=== PATIENT | female | born 1950 | race Caucasian/White ===

== ENCOUNTER 2024-09-18 19:55 | Emergency (ER) | payer MEDICARE ==
--- NOTE | 2024-09-18 20:29 | ED ---
SOB HPI - General Chief Complaint: Shortness of Breath Stated Complaint: SOB back pain Time Seen by Provider: 09/18/24 20:29 Source: patient, family, RN notes reviewed Mode of arrival: wheelchair Limitations: no limitations - History of Present Illness Initial Comments: 74-year-old female with a past medical history significant of hyperlipidemia presenting to the ER for evaluation of shortness of breath. She states for the past couple of weeks she has been having progressively worsening shortness of breath. She states 2 weeks ago she was seen at urgent care as she believes she had a sinus infection. Patient reports 1 week ago she traveled to [place] via airplane with continued shortness of breath. She states this continued to progressively worsening while in [place] which prompted ER visit today after landing around 5pm. Patient also is reporting a right-sided chest discomfort. She does report radiation into her right upper quadrant/epigastric region. She also admits to mild lightheadedness and exertional dyspnea. She states she can only take 4-5 steps without feeling extremely lightheaded and short of breath. Patient admits to conversational dyspnea. She does not typically wear oxygen at home. No history of COPD. Patient is an intermittent smoker. No history of PE/DVT, blood thinner use, OH or stent placement. She denies any nausea, vomiting, urinary complaints, constipation/diarrhea or peripheral edema. Patient has not taken anything for symptoms at this time. No other complaints. - Related Data Previous Rx's Medication Instructions Recorded Ketorolac [Toradol] 10 mg PO Q8HR #30 tab 09/18/24 Allergies Allergy/AdvReac Type Severity Reaction Status Date / Time codeine AdvReac Rash/Hives Verified 09/18/24 20:03 Review of Systems ROS Statement: Those systems with pertinent positive or pertinent negative responses have been documented in the HPI. ROS Other: All systems not noted in ROS Statement are negative. Past Medical History History of Any Multi-Drug Resistant Organisms: None Reported Past Surgical History: Joint Replacement Additional Past Surgical History / Comment(s): cataract bilateral eyes. left hip replacement. Past Psychological History: No Psychological Hx Reported Smoking Status: Former smoker Past Alcohol Use History: Rare Past Drug Use History: None Reported General Exam Limitations: no limitations General appearance: alert, in no apparent distress, other (Conversational dys pnea) Respiratory exam: Present: normal lung sounds bilaterally, chest wall tenderness (Right anterior ribs no overlying skin changes.). Absent: respiratory distress, wheezes, rales, rhonchi, stridor Cardiovascular Exam: Present: regular rate, normal rhythm, normal heart sounds. Absent: systolic murmur, diastolic murmur, rubs, gallop, clicks GI/Abdominal exam: Present: soft, tenderness (Right upper quadrant), normal bow el sounds Extremities exam: Present: normal inspection, full ROM, normal capillary refill. Absent: tenderness, pedal edema, joint swelling, calf tenderness Neurological exam: Present: alert, oriented X3, CN II-XII intact Skin exam: Present: warm, dry, intact, normal color. Absent: rash Course Vital Signs 09/18/24 09/18/24 09/18/24 19:57 21:03 22:21 Temperature 98.4 F 98.7 F Pulse Rate 85 75 75 Respiratory 18 17 20 Rate Blood Pressure 153/80 173/91 177/89 O2 Sat by Pulse 94 L 95 93 L Oximetry 09/19/24 00:16 Temperature Pulse Rate 80 Respiratory 18 Rate Blood Pressure 161/86 O2 Sat by Pulse 95 Oximetry - Reevaluation(s) Reevaluation #1: 09/18/24 23:08 Patient reevaluated. Patient reporting improvement of pain. She also states it is easier for her to breathe. No signs of acute distress. Medical Decision Making - Medical Decision Making Was pt. sent in by a medical professional or institution (, PA, E[employer] SALES REPRESENTATIVE, urgent care, hospital, or intermediate...) When possible be specific @ -No Did you speak to anyone other than the patient for history (EMS, parent, family, police, friend...)? What history was obtained from this source @ -Patient's , at bedside, aiding in HPI and past medical history. Did you review nursing and triage notes (agree or disagree)? Why? @ -I reviewed and agree with nursing and triage notes Were old charts reviewed (outside hosp., previous admission, EMS record, old EKG, old radiological studies, urgent care reports/EKG's, intermediate records)? Report findings @ -No old charts were reviewed Differential Diagnosis (chest pain, altered mental status, abdominal pain women, abdominal pain men, vaginal bleeding, weakness, fever, dyspnea, syncope, headache, dizziness, GI bleed, back pain, seizure, CVA, palpatations, mental health, musculoskeletal)? @ -Differential Dyspnea: Coronary syndrome, arrhythmia, tamponade, asthma, COPD, pulmonary embolism, pneumonia, pneumothorax, pulmonary effusion, anaphylaxis, diabetic ketoacidosis, flailed chest, pulmonary contusion, diaphragmatic rupture, anemia, neuromuscular, this is not meant to be an all- inclusive list. EKG interpreted by me (3pts min.). @ -As above X-rays interpreted by me (1pt min.). @ -CXR showed a patchy left upper lobe infiltrate concerning for pneumonia. CT interpreted by me (1pt min.). @ -CTA chest showing no evidence of pulmonary embolism. Consolidative change noted to the left upper lobe associated with extensive mediastinal lymphadenopathy possibly neoplasm. CT abdomen pelvis showing extensive metas tatic disease to the liver. Nonobstructing left renal calculi. No bowel obstruction] U/S interpreted by me (1pt. min.). @ -Gallbladder ultrasound showing cholelithiasis without acute evidence of ac shona cholecystitis. Common bile duct 0.5 cm. Hepatomegaly and heterogeneous hepatic echotexture with indeterminate lesions measuring up to 2.7 cm. What testing was considered but not performed or refused? (CT, X-rays, U/S, labs)? Why? @ -None What meds were considered but not given or refused? Why? @ -None Did you discuss the management of the patient with other professionals (professionals i.e. , PA, E[employer] SALES REPRESENTATIVE, lab, RT, psych nurse, rn social services, farm general manager, teacher, senior officer, case aide)? Give summary @ -No Was smoking cessation discussed for >3mins.? @ -No Was critical care preformed (if so, how long)? @ -No Were there social determinants of health that impacted care today? How? (Ho melessness, low income, unemployed, alcoholism, drug addiction, transportation, low edu. Level, literacy, decrease access to med. care, detention, rehab)? @ -Patient does not have primary care physician established. Was there de-escalation of care discussed even if they declined (Discuss DNR or withdrawal of care, Hospice)? DNR status @ -No What co-morbidities impacted this encounter? (DM, HTN, Smoking, COPD, CAD, Cancer, CVA, ARF, Chemo, Hep., AIDS, mental health diagnosis, sleep apnea, morbid obesity)? @ -Hyperlipidemia Was patient admitted / discharged? Hospital course, mention meds given and route, prescriptions, significant lab abnormalities, going to OR and other pertinent info. @ -Discharge. 74-year-old female presented to the ER for evaluation of shortness of breath. Vitals within acceptable limits. Patient has conversational dyspnea on exam and exquisite right upper quadrant abdominal tenderness. Laboratory studies showing a WBC of 10. Transaminitis with a total bilirubin of 2.0, AST 190, ALT 114, alk phos 404. Lipase 526, amylase 70. . Viral swabs negative. Troponin 0.034 with a BNP 764. D-dimer elevated 11.16 for which CTA chest was ordered and negative for acute evidence of pulmonary embolism. CTA chest also showing consolidative changes the left upper lobe associated with extensive mediastinal lymphadenopathy raising concern of neoplasm. Given transaminitis, gallbladder ultrasound ordered showing cholelithiasis and multiple heterogeneous hepatic echotexture lesions. Common bile duct 0.[address] abdomen pelvis completed at that time showing worrisome findings of metastatic disease to the liver. Patient given symptomatic treatment in the ER with IV fluids and Toradol, with improvement. Upon reevaluation, patient resting comfortably in exam room reporting improvement of pain and shortness of breath. Laboratory and imaging results discussed with patient including concern of possible malignancy, all questions answered. Admission was offered to patient for possible biopsy of liver lesions, patient refused and stated she would like to go home. Patient provided with Toradol prescription and PCP recommendations as she does not currently have one. I advised her to follow-up closely with PCP for further evaluation and treatment. Patient is stable for discharge at this time. Strict return parameters discussed. Patient discharged in stable condition with follow-up to PCP. Patient verbally expressed understanding and agreement with care plan. Case discussed with ED attending, Dr. Ramos. Undiagnosed new problem with uncertain prognosis? @ -No Drug Therapy requiring intensive monitoring for toxicity (Heparin, Nitro, Insulin, Cardizem)? @ -No Were any procedures done? @ -No Diagnosis/symptom? @ -Transaminitis/abnormal CT Acute, or Chronic, or Acute on Chronic? @ -Acute Uncomplicated (without systemic symptoms) or Complicated (systemic symptoms)? @ -Complicated Side effects of treatment? @ -No Exacerbation, Progression, or Severe Exacerbation? @ -No Poses a threat to life or bodily function? How? (Chest pain, USA, OH, pneumonia, PE, COPD, DKA, ARF, appy, cholecystitis, CVA, Diverticulitis, Homicidal, Suicidal, threat to staff... and all critical care pts) @ -Yes cannot rule out malignancy - Lab Data Result diagrams: 09/18/24 20:23 09/18/24 20:23 Lab Results 09/18/24 09/18/24 09/18/24 Range/Units 20:23 20:23 20:23 WBC 10.0 (3.8-10.6) k/uL RBC 4.07 (3.80-5.40) m/uL Hgb 12.8 (11.4-16.0) gm/dL Hct 39.5 (34.0-46.0) % MCV 97.2 (80.0-100.0) fL MCH 31.4 (25.0-35.0) pg MCHC 32.3 (31.0-37.0) g/dL RDW 13.0 (11.5-15.5) % Plt Count 106 L (150-450) k/uL MPV 8.9 Neutrophils % 75 % Lymphocytes % 14 % Monocytes % 7 % Eosinophils % 1 % Basophils % 1 % Neutrophils # 7.5 (1.3-7.7) k/uL Lymphocytes # 1.4 (1.0-4.8) k/uL Monocytes # 0.7 (0-1.0) k/uL Eosinophils # 0.1 (0-0.7) k/uL Basophils # 0.1 (0-0.2) k/uL PT 10.6 (10.0-12.5) sec INR 1.0 (<1.2) APTT 24.6 (22.0-30.0) sec D-Dimer 11.16 H (<0.60) mg/L FEU Sodium 133 L (137-145) mmol/L Potassium 4.4 (3.5-5.1) mmol/L Chloride 98 (98-107) mmol/L Carbon Dioxide 28 (22-30) mmol/L Anion Gap 7 mmol/L BUN 10 (7-17) mg/dL Creatinine 0.45 L (0.52-1.04) mg/dL Est GFR (CKD-EPI)AfAm >90 (>60 ml/min/1.73 sqM) Est GFR (CKD-EPI)NonAf >90 (>60 ml/min/1.73 sqM) Glucose 130 H (74-99) mg/dL Plasma Lactic Acid Florin (0.7-2.0) mmol/L Calcium 9.5 (8.4-10.2) mg/dL Magnesium 2.0 (1.6-2.3) mg/dL Total Bilirubin 2.0 H (0.2-1.3) mg/dL AST 190 H (14-36) U/L ALT 114 H (4-34) U/L Alkaline Phosphatase 404 H (38-126) U/L Troponin I (0.000-0.034) ng/mL NT-Pro-B Natriuret Pep 764 pg/mL Total Protein 7.6 (6.3-8.2) g/dL Albumin 4.1 (3.5-5.0) g/dL Amylase 70 (30-110) U/L Lipase 526 H (23-300) U/L Influenza Type A (PCR) (Not Detectd) Influenza Type B (PCR) (Not Detectd) RSV (PCR) (Not Detectd) SARS-CoV-2 (PCR) (Not Detectd) 09/18/24 09/18/24 09/18/24 Range/Units 20:23 20:23 20:54 WBC (3.8-10.6) k/uL RBC (3.80-5.40) m/uL Hgb (11.4-16.0) gm/dL Hct (34.0-46.0) % MCV (80.0-100.0) fL MCH (25.0-35.0) pg MCHC (31.0-37.0) g/dL RDW (11.5-15.5) % Plt Count (150-450) k/uL MPV Neutrophils % % Lymphocytes % % Monocytes % % Eosinophils % % Basophils % % Neutrophils # (1.3-7.7) k/uL Lymphocytes # (1.0-4.8) k/uL Monocytes # (0-1.0) k/uL Eosinophils # (0-0.7) k/uL Basophils # (0-0.2) k/uL PT (10.0-12.5) sec INR (<1.2) APTT (22.0-30.0) sec D-Dimer (<0.60) mg/L FEU Sodium (137-145) mmol/L Potassium (3.5-5.1) mmol/L Chloride (98-107) mmol/L Carbon Dioxide (22-30) mmol/L Anion Gap mmol/L BUN (7-17) mg/dL Creatinine (0.52-1.04) mg/dL Est GFR (CKD-EPI)AfAm (>60 ml/min/1.73 sqM) Est GFR (CKD-EPI)NonAf (>60 ml/min/1.73 sqM) Glucose (74-99) mg/dL Plasma Lactic Acid Florin 1.7 (0.7-2.0) mmol/L Calcium (8.4-10.2) mg/dL Magnesium (1.6-2.3) mg/dL Total Bilirubin (0.2-1.3) mg/dL AST (14-36) U/L ALT (4-34) U/L Alkaline Phosphatase (38-126) U/L Troponin I 0.034 (0.000-0.034) ng/mL NT-Pro-B Natriuret Pep pg/mL Total Protein (6.3-8.2) g/dL Albumin (3.5-5.0) g/dL Amylase (30-110) U/L Lipase (23-300) U/L Influenza Type A (PCR) Not Detected (Not Detectd) Influenza Type B (PCR) Not Detected (Not Detectd) RSV (PCR) Not Detected (Not Detectd) SARS-CoV-2 (PCR) Not Detected (Not Detectd) - EKG Data -: EKG Interpreted by Me EKG Comments: EKG taken at 20: 14 showing a sinus rhythm with frequent PACs. No ST segment elevations or depressions. No T wave inversions. Ventricular rate 81, MT interval 108, QRS duration 96, QT/QTc 360/401. - Radiology Data Radiology results: report reviewed, image reviewed Disposition Clinical Impression: Transaminitis, Abnormal CT scan Disposition: HOME SELF-CARE Condition: Stable Additional Instructions: Follow-up closely with PCP A list has been provided for you. Take Toradol as prescribed. Return to the ER for any new or worsening concerns. Prescriptions: Ketorolac [Toradol] 10 mg PO Q8HR #30 tab Is patient prescribed a controlled substance at d/c from ED?: No Referrals: None,Stated [Primary Care Provider] - 1-2 days Forms: Area PCPs Time of Disposition: 23:55
--- NOTE | 2024-09-18 20:45 | XR ---
EXAMINATION TYPE: XR chest 2V DATE OF EXAM: 09/18/2024 8:41 PM COMPARISON: None. CLINICAL INDICATION: Female, 74 years old with history of difficulty breathing; [facility] TECHNIQUE: XR chest 2V Frontal and lateral views of the chest. FINDINGS: Lungs/Pleura: Patchy infiltrative opacities in the left upper lung. No sizable pleural effusion. No p neumothorax. Pulmonary vascularity: Unremarkable. Heart/mediastinum: Cardiomediastinal silhouette is unremarkable. Musculoskeletal: No acute osseous pathology. Other findings: None IMPRESSION: Patchy left upper lobe infiltrative opacities suspicious for pneumonia. Consider outpatient follow-up imaging to document resolution after treatment course. [facility], , 09/18/2024 8:43 PM
[2024-09-18 20:59] LABS: Basophils # (A) 0.1 k/uL (0-0.2); Basophils % (A) 1 %; Eosinophils # (A) 0.1 k/uL (0-0.7); Eosinophils % (A) 1 %; HCT 39.5 % (34.0-46.0); HGB 12.8 gm/dL (11.4-16.0); Lymphocytes # (A) 1.4 k/uL (1.0-4.8); Lymphocytes % (A) 14 %; MCH 31.4 pg (25.0-35.0); MCHC 32.3 g/dL (31.0-37.0); MCV 97.2 fL (80.0-100.0); Mean Platelet Volume 8.9; Monocytes # (A) 0.7 k/uL (0-1.0); Monocytes % (A) 7 %; Neutrophils # (A) 7.5 k/uL (1.3-7.7); Neutrophils % (A) 75 %; Platelet Count 106 k/uL (150-450); RBC 4.07 m/uL (3.80-5.40)
[2024-09-18 21:09] LABS: ALT 114 U/L (4-34); AST 190 U/L (14-36); African American GFR (CKD) >90 (>60 ml/min/1.73 sqM); Albumin 4.1 g/dL (3.5-5.0); Alkaline Phosphatase 404 U/L (38-126); Amylase 70 U/L (30-110); Anion Gap 7 mmol/L; Blood Urea Nitrogen 10 mg/dL (7-17); Calcium 9.5 mg/dL (8.4-10.2); Carbon Dioxide 28 mmol/L (22-30); Chloride 98 mmol/L (98-107); Glucose 130 mg/dL (74-99); Lipase 526 U/L (23-300); Non-African American GFR(CKD) >90 (>60 ml/min/1.73 sqM); Potassium 4.4 mmol/L (3.5-5.1); Sodium 133 mmol/L (137-145); Total Protein 7.6 g/dL (6.3-8.2)
[2024-09-18 21:14] LABS: Partial Thromboplastin Time 24.6 sec (22.0-30.0); Prothrombin Time 10.6 sec (10.0-12.5)
[2024-09-18 21:16] LABS: NT-Pro-B-Type Natriuretic Pept 764 pg/mL
[2024-09-18 21:52] LABS: Influenza A Not Detected (Not Detectd); Influenza B Not Detected (Not Detectd); RSV Not Detected (Not Detectd)
--- NOTE | 2024-09-18 22:00 | US ---
EXAMINATION TYPE: US gallbladder DATE OF EXAM: 09/18/2024 COMPARISON: NONE CLINICAL INDICATION: Female, 74 years old with history of transamainitis/RUQ abd pain; Pain TECHNIQUE: Grayscale and color Doppler imaging of the right upper quadrant was performed. FINDINGS: EXAM MEASUREMENTS: Liver Length: 23.6 cm Gallbladder Wall: 0.2 cm CBD: 0.5 cm Right Kidney: 10.9 x 4.6 x 4.0 cm Pancreas: wnl as visualized Liver: Enlarged in size. Heterogenous. Multiple nodules seen throughout liver with largest seen in right = 2.7 cm. Gallbladder: Mobile echogenic foci Evidence for sonographic Verma's sign: neg CBD: limited visualization Right Kidney: No hydronephrosis or masses seen IMPRESSION: 1. Cholelithiasis without definite sonographic evidence of acute cholecystitis. 2. Hepatomegaly and heterogeneous hepatic echotexture with indeterminate lesions measuring up to 2.[address] abdomen/pelvis with IV contrast for further evaluation. [facility], , 09/18/2024 9:58 PM
[2024-09-18 22:24] VITALS: TEMP 98.7
[2024-09-18] MEDS: SODIUM CHLORIDE 0.9% 500 ML 500 ML IV ONE (22:27)
[2024-09-18] MEDS: KETOROLAC 15 MG/ML 1 ML VIAL IVP STA (22:27)
--- NOTE | 2024-09-18 23:13 | CT ---
EXAM: CT Angiography Chest With Intravenous Contrast CLINICAL HISTORY: ITS.REASON CT Reason: elevated dimer/sob TECHNIQUE: Axial computed tomographic angiography images of the chest with intravenous contrast. CTDI is 7.1 mGy and DLP is 270.4 mGy-cm. This CT exam was performed using one or more of the following dose reduction techniques: automated exposure control, adjustment of the mA and/or kV according to patient size, and/or use of iterative reconstruction technique. MIP reconstructed images were created and reviewed. COMPARISON: Chest x-ray of 09/18/2024. FINDINGS: Pulmonary arteries: Peripheral branches the pulmonary arteries are unremarkable. Aorta: Atherosclerotic disease of the thoracic aorta. Atherosclerotic disease and ASCVD. No thoracic aortic aneurysm. Lungs: Consolidative changes noted at the left upper lobe. There is COPD. Minimal scarring and subsegmental atelectasis noted at the lung bases. Pleural space: Unremarkable. No significant effusion. No pneumothorax. Heart: Heart is normal in size. No cardiomegaly. No significant pericardial effusion. No evidence of RV dysfunction. Mediastinum: There is extensive mediastinal lymphadenopathy. Thyroid: The visualized thyroid gland is unremarkable. Bones/joints: No acute fracture. No dislocation. Soft tissues: Unremarkable. Lymph nodes: See above. Liver: Fatty liver. Other findings: Severe degenerative disc disease of the thoracic spine. IMPRESSION: 1. There is consolidative change at the left upper lobe with associated extensive mediastinal lymphadenopathy raising concern for neoplasm. PET imaging is highly advised for further assessment. Further workup is advised. 2. Central pulmonary arteries are unremarkable. 3. Peripheral branches the pulmonary arteries are limited but grossly unremarkable.
--- NOTE | 2024-09-18 23:17 | CT ---
EXAM: CT Abdomen and Pelvis With Intravenous Contrast CLINICAL HISTORY: ITS.REASON CT Reason: RUQ abd pain/transaminitis TECHNIQUE: Axial computed tomography images of the abdomen and pelvis with intravenous contrast. CTDI is 12 mGy and DLP is 1080.7 mGy-cm. This CT exam was performed using one or more of the following dose reduction techniques: automated exposure control, adjustment of the mA and/or kV according to patient size, and/or use of iterative reconstruction technique. COMPARISON: No previous studies. FINDINGS: Lung bases: Minimal scarring and subsegmental atelectasis noted at the lung bases. Heart: Heart is top normal in size. Mediastinum: Mild distal esophagitis. ABDOMEN: Liver: There is extensive metastatic disease to the liver. Fatty liver. Gallbladder and bile ducts: Small gallstones are noted. No ductal dilation. Pancreas: See below. Spleen: Spleen enhances uniformly. Adrenals: The adrenal glands, the head, body, tail of the pancreas are unremarkable. Kidneys and ureters: Both kidneys are shown to excrete contrast bilaterally. Nonspecific stranding about the perinephric spaces. A 0.7 cm nonobstructing calculus of the lower pole region of the left kidney is noted. Stomach and bowel: Small quantity of ingested material in the stomach. Moderate quantity of stool throughout the colon. No obstruction. No mucosal thickening. PELVIS: Appendix: No findings to suggest acute appendicitis. Bladder: The bladder is underdistended. Reproductive: Fibroid uterus. ABDOMEN and PELVIS: Intraperitoneal space: Unremarkable. No free air. No significant fluid collection. Bones/joints: Total left hip prosthesis is noted in place and are normal anatomic position. No acute fracture. No dislocation. No spondylolysis. Soft tissues: Unremarkable. Vasculature: Atherosclerotic disease. Portal vein is patent. Flow is noted within the celiac, SMA, the renal arteries, and GERALD. Atherosclerotic disease of the abdominal aorta extending to the common iliac arteries, without aneurysmal dilatation. Lymph nodes: Unremarkable. No retroperitoneal lymphadenopathy. Other findings: ASCVD. IMPRESSION: 1. Cardiomegaly. 2. Atherosclerotic disease and ASCVD. 3. Fatty liver. 4. Findings worrisome for diffuse metastatic disease to the liver. PET imaging is advised to follow. 5. Cholelithiasis. 6. Nonobstructing left renal calculi. 7. No hydronephrosis. 8. Fibroid uterus. 9. No bowel obstruction.
[2024-09-19 00:18] VITALS: BP 161/86; PULSE 80; RESP 18
== END 2024-09-19 00:17 | disposition home or self-care (01) ==
LOC: EC 19:55
DX: R74.01 Elevation of levels of liver transaminase levels (principal); R93.89 Abnormal findings on diagnostic imaging of other specified body structures; E78.5 Hyperlipidemia, unspecified; Z87.891 Personal history of nicotine dependence; Z88.5 Allergy status to narcotic agent
CPT/HCPCS: 36415; 93005; 85379; 83880; 80053; 82150; 83605; 83690; 83735; 84484; 85025; 85610; 85730; 87636; 71046; 76705; 71275; 74177; 99285; 96374; 96361; J1885; Q9967

== ENCOUNTER 2024-09-26 13:11 | Inpatient (IN) | payer MEDICARE ==
--- NOTE | 2024-09-26 13:30 | ED ---
SOB HPI - General Source: patient, RN notes reviewed, old records reviewed Mode of arrival: wheelchair Limitations: no limitations <Johan Peoples - Last Filed: 09/26/24 15:02> - General Source: patient, RN notes reviewed, old records reviewed Mode of arrival: wheelchair Limitations: no limitations - History of Present Illness MD Complaint: shortness of breath, chest pain, pain with inspiration -: month(s) Severity: severe Severity scale (1-10): 7 Quality: aching Consistency: constant Improves With: nothing Worsens With: nothing Context: anxiety Associated Symptoms: chest pain Treatments Prior to Arrival: none <Stan Masters - Last Filed: 10/02/24 17:57> - General Stated Complaint: JONNATHAN, chest pain, back pain Time Seen by Provider: 09/26/24 13:29 - History of Present Illness Initial Comments: Quick note: 74-year-old female presented to the ER for evaluation of shortness of breath. Patient seen here on for similar complaint. Patient was discharged with Toradol. She states she is currently out of this medication. She states she continues to have chest, back and abdominal pain. Patient has not been able to eat. Unknown weight loss. Patient established primary care with Dr. Harry. (Johan Peoples) This is a 74-year-old female to the ER for evaluation of dyspnea. Severe shor tness of breath a week of symptoms really 3 months of symptoms per at bedside states she is not eating or drinking losing significant amounts of weight and significant weakness increased weakness increasing pain and increasing shortness of breath (Stan Masters) - Related Data Home Medications Medication Instructions Recorded Confirmed Amitriptyline HCl [Elavil] 10 mg PO DIRECTED 09/26/24 09/26/24 Benzonatate [Tessalon Perle] 200 mg PO TID PRN 09/26/24 09/26/24 Previous Rx's Medication Instructions Recorded Morphine Sulfate Ir [MSIR] 15 mg PO Q6HR PRN tab 09/29/24 polyethylene glycoL 3350 [Miralax] 17 gm PO DAILY packet 09/29/24 Allergies Allergy/AdvReac Type Severity Reaction Status Date / Time codeine Allergy Rash/Hives Verified 09/26/24 20:26 Review of Systems ROS Other: All systems not noted in ROS Statement are negative. <Johan Peoples - Last Filed: 09/26/24 15:02> ROS Other: All systems not noted in ROS Statement are negative. <Stan Masters - Last Filed: 10/02/24 17:57> ROS Statement: Those systems with pertinent positive or pertinent negative responses have been documented in the HPI. Past Medical History History of Any Multi-Drug Resistant Organisms: None Reported Past Surgical History: Joint Replacement Additional Past Surgical History / Comment(s): cataract bilateral eyes. left hip replacement. Past Psychological History: No Psychological Hx Reported Smoking Status: Former smoker Past Alcohol Use History: Rare Past Drug Use History: None Reported <Johan Peoples - Last Filed: 09/26/24 15:02> General Exam <Johan Peoples - Last Filed: 09/26/24 15:02> General appearance: alert, in no apparent distress Head exam: Present: atraumatic, normocephalic, normal inspection Eye exam: Present: normal appearance, PERRL, EOMI. Absent: scleral icterus, conjunctival injection, periorbital swelling ENT exam: Present: normal exam, mucous membranes moist Neck exam: Present: normal inspection. Absent: tenderness, meningismus, lymphadenopathy Respiratory exam: Present: normal lung sounds bilaterally. Absent: respiratory distress, wheezes, rales, rhonchi, stridor Cardiovascular Exam: Present: regular rate, normal rhythm, normal heart sounds. Absent: systolic murmur, diastolic murmur, rubs, gallop, clicks GI/Abdominal exam: Present: soft, normal bowel sounds. Absent: distended, tenderness, guarding, rebound, rigid Extremities exam: Present: normal inspection, full ROM, normal capillary refill. Absent: tenderness, pedal edema, joint swelling, calf tenderness Back exam: Present: normal inspection Neurological exam: Present: alert, oriented X3, CN II-XII intact Psychiatric exam: Present: normal affect, normal mood Skin exam: Present: warm, dry, intact, normal color. Absent: rash <Stan Masters - Last Filed: 10/02/24 17:57> - General Exam Comments Initial Comments: Visual Physical Exam Vital signs reviewed General: Well-appearing, nontoxic, no acute distress. Head: Normocephalic, atraumatic Eyes: PERRLA, EOMI ENT: Airway patent Chest: Nonlabored breathing Skin: No visual rash, normal skin tone Neuro: Alert and oriented 3 Musculoskeletal: No gross abnormalities (Johan Peoples) Course <Stan Masters - Last Filed: 10/02/24 17:57> Vital Signs 09/26/24 09/26/24 09/26/24 13:35 20:09 20:49 Temperature 97.4 F L Pulse Rate 85 87 77 Pulse Rate [ Pulse Oximetery ] Respiratory 20 18 16 Rate Blood Pressure 121/78 126/71 160/78 Blood Pressure [Left Arm] O2 Sat by Pulse 96 95 95 Oximetry 09/27/24 09/27/24 09/27/24 00:14 05:09 07:48 Temperature 98.0 F Pulse Rate 77 84 Pulse Rate [ 70 Pulse Oximetery ] Respiratory 18 16 16 Rate Blood Pressure 144/88 112/53 Blood Pressure 145/78 [Left Arm] O2 Sat by Pulse 95 95 96 Oximetry - Reevaluation(s) Reevaluation #1: 09/26/24 22:51 Medical records reviewed (Stan Masters) Reevaluation #2: 09/26/24 22:51 Patient symptoms improved patient's pain is controlled (Stan Masters) Reevaluation #3: 09/26/24 22:51 Patient informed of results and questions answered (Stan Masters) Reevaluation #4: Was pt. sent in by a medical professional or institution (, PA, SUSTAINABILITY COMMUNICATOR, urgent care, hospital, or half-way...) When possible be specific @ -no Did you speak to anyone other than the patient for history (EMS, parent, family, police, friend...)? What history was obtained from this source @ -no Did you review nursing and triage notes (agree or disagree)? Why? @ -agree Are old charts reviewed (outside hosp., previous admission, EMS record, old EKG, old radiological studies, urgent care reports/EKG's, half-way records)? Report findings @ -yes Differential Diagnosis (chest pain, altered mental status, abdominal pain women, abdominal pain men, vaginal bleeding, weakness, fever, dyspnea, syncope, headache, dizziness, GI bleed, back pain, seizure, CVA, palpatations, mental health, musculoskeletal)? @ -prior EKG interpreted by me (3pts min.). @ -yes X-rays interpreted by me (1pt min.). @ -yes positive for significant metastatic cancer CT interpreted by me (1pt min.). @ -Yes positive for metastatic cancer U/S interpreted by me (1pt. min.). @ -no What testing was considered but not performed or refused? (CT, X-rays, U/S, labs)? Why? @ -none What meds were considered but not given or refused? Why? @ -none Did you discuss the management of the patient with other professionals (professionals i.e. Dr., PA, SUSTAINABILITY COMMUNICATOR, lab, RT, psych nurse, oncology social worker, supervisor fertilizer, teacher, navigating officer, case management coordinator)? Give summary @ -no Was smoking cessation discussed for >3mins.? @ -no Was critical care preformed (if so, how long)? @ -no Were there social determinants of health that impacted care today? How? (Ho melessness, low income, unemployed, alcoholism, drug addiction, transportation, low edu. Level, literacy, decrease access to med. care, custodial, rehab)? @ -none Was there de-escalation of care discussed even if they declined (Discuss DNR or withdrawal of care, Hospice)? DNR status @ -no What co-morbidities impacted this encounter? (DM, HTN, Smoking, COPD, CAD, Cancer, CVA, ARF, Chemo, Hep., AIDS, mental health diagnosis, sleep apnea, morbid obesity)? @ -none Was patient admitted / discharged? Hospital course, mention meds given and route, prescriptions, significant lab abnormalities, going to OR and other pertinent info. @ - 74 female will be admitted for new findings of cancer, with metastasis. Suspect along with metastasis to liver. Severe pain cancer pain dehydration malnutrition Admitted Undiagnosed new problem with uncertain prognosis? @ -no Drug Therapy requiring intensive monitoring for toxicity (Heparin, Nitro, Insulin, Cardizem)? @ -no Were any procedures done? @ -no Diagnosis/symptom? @ -New diagnosis cancer with metastasis, uncontrolled cancer pain Acute, or Chronic, or Acute on Chronic? @ -Acute Uncomplicated (without systemic symptoms) or Complicated (systemic symptoms)? @ -Complicated Side effects of treatment? @ -no Exacerbation, Progression, or Severe Exacerbation? @ -exacerbation Poses a threat to life or bodily function? How? (Chest pain, USA, VT, pneumonia, PE, COPD, DKA, ARF, appy, cholecystitis, CVA, Diverticulitis, Homicidal, Suicidal, threat to staff... and all critical care pts) @ -yes significant cancer burden (Stan Masters) Reevaluation #5: Differential Abdominal Pain Women: Appendicitis, Cholecystitis, diverticulosis, ischemic bowel, pancreatitis, hepatitis, UTI, gastroenteritis, AAA, incarcerated hernia, bowel obstruction, constipation, inflammatory bowel, hepatitis, peptic ulcer disease, splenic infarction, perforated viscus, vulvitis, ovarian torsion, PID, kidney stone, placenta abruption, this is not meant to be an all-inclusive list Differential Chest Pain: Stable Angina, Unstable Angina, STEMI, NSTEMI Aortic Dissection, Pneumothorax, Musculoskeletal, Esophageal Spasm GERD, Cholecystitis, Pancreatitis, Zoster, this is not meant to be an all-inclusive list. (Satn Masters) - Consultations Consultation #1: Spoke with sound who agrees to admit this patient (Stan Masters) Medical Decision Making <Johan Peoples - Last Filed: 09/26/24 15:02> - Lab Data Result diagrams: 09/29/24 09:11 09/29/24 05:46 - Radiology Data Radiology results: report reviewed (CTA chest abdomen pelvis positive for diffuse cancer ultrasound gallbladder negative for acute cholecystitis, chest x- ray is likely mass), image reviewed <Stan Masters - Last Filed: 10/02/24 17:57> - Medical Decision Making I performed the quick note portion of this chart. Electronically signed by Johan Peoples PA-C (Johan Peoples) 74 female will be admitted for new findings of cancer, with metastasis. Suspect along with metastasis to liver. Severe pain cancer pain dehydration malnutrition (Stan Masters) - Lab Data Lab Results 09/26/24 09/26/24 09/26/24 Range/Units 16:07 16:07 16:07 WBC 8.7 (3.8-10.6) k/uL RBC 4.29 (3.80-5.40) m/uL Hgb 13.6 (11.4-16.0) gm/dL Hct 41.6 (34.0-46.0) % MCV 97.0 (80.0-100.0) fL MCH 31.6 (25.0-35.0) pg MCHC 32.6 (31.0-37.0) g/dL RDW 14.1 (11.5-15.5) % Plt Count 109 L (150-450) k/uL MPV 9.5 Neutrophils % 71 % Lymphocytes % 18 % Monocytes % 6 % Eosinophils % 1 % Basophils % 1 % Neutrophils # 6.2 (1.3-7.7) k/uL Lymphocytes # 1.5 (1.0-4.8) k/uL Monocytes # 0.5 (0-1.0) k/uL Eosinophils # 0.1 (0-0.7) k/uL Basophils # 0.1 (0-0.2) k/uL PT 11.6 (10.0-12.5) sec INR 1.1 (<1.2) APTT 25.6 (22.0-30.0) sec Sodium 135 L (137-145) mmol/L Potassium 4.3 (3.5-5.1) mmol/L Chloride 100 (98-107) mmol/L Carbon Dioxide 23 (22-30) mmol/L Anion Gap 12 mmol/L BUN 15 (7-17) mg/dL Creatinine 0.64 (0.52-1.04) mg/dL Est GFR (CKD-EPI)AfAm >90 (>60 ml/min/1.73 sqM) Est GFR (CKD-EPI)NonAf 88 (>60 ml/min/1.73 sqM) Glucose 110 H (74-99) mg/dL Calcium 9.8 (8.4-10.2) mg/dL Magnesium 2.1 (1.6-2.3) mg/dL Total Bilirubin 3.6 H (0.2-1.3) mg/dL AST 284 H (14-36) U/L ALT 131 H (4-34) U/L Alkaline Phosphatase 606 H (38-126) U/L Troponin I (0.000-0.034) ng/mL Total Protein 7.1 (6.3-8.2) g/dL Albumin 3.8 (3.5-5.0) g/dL Lipase (23-300) U/L 09/26/24 09/26/24 Range/Units 16:07 16:07 WBC (3.8-10.6) k/uL RBC (3.80-5.40) m/uL Hgb (11.4-16.0) gm/dL Hct (34.0-46.0) % MCV (80.0-100.0) fL MCH (25.0-35.0) pg MCHC (31.0-37.0) g/dL RDW (11.5-15.5) % Plt Count (150-450) k/uL MPV Neutrophils % % Lymphocytes % % Monocytes % % Eosinophils % % Basophils % % Neutrophils # (1.3-7.7) k/uL Lymphocytes # (1.0-4.8) k/uL Monocytes # (0-1.0) k/uL Eosinophils # (0-0.7) k/uL Basophils # (0-0.2) k/uL PT (10.0-12.5) sec INR (<1.2) APTT (22.0-30.0) sec Sodium (137-145) mmol/L Potassium (3.5-5.1) mmol/L Chloride (98-107) mmol/L Carbon Dioxide (22-30) mmol/L Anion Gap mmol/L BUN (7-17) mg/dL Creatinine (0.52-1.04) mg/dL Est GFR (CKD-EPI)AfAm (>60 ml/min/1.73 sqM) Est GFR (CKD-EPI)NonAf (>60 ml/min/1.73 sqM) Glucose (74-99) mg/dL Calcium (8.4-10.2) mg/dL Magnesium (1.6-2.3) mg/dL Total Bilirubin (0.2-1.3) mg/dL AST (14-36) U/L ALT (4-34) U/L Alkaline Phosphatase (38-126) U/L Troponin I <0.012 (0.000-0.034) ng/mL Total Protein (6.3-8.2) g/dL Albumin (3.5-5.0) g/dL Lipase 326 H (23-300) U/L Disposition <Johan Peoples - Last Filed: 09/26/24 15:02> Is patient prescribed a controlled substance at d/c from ED?: No Time of Disposition: 20:45 <Stan Masters - Last Filed: 10/02/24 17:57> Clinical Impression: Transaminitis, Lung mass, Metastatic cancer to liver, Weakness, Chronic pain Disposition: ADMITTED IP TO THIS HOSP Condition: Stable
--- NOTE | 2024-09-26 13:52 | XR ---
EXAMINATION TYPE: XR chest 2V DATE OF EXAM: 09/26/2024 1:48 PM COMPARISON: None. CLINICAL INDICATION: Female, 74 years old with history of Chest Pain: Shortness of breath TECHNIQUE: XR chest 2V views of the chest are obtained. FINDINGS: Scattered senescent parenchymal changes noted. Hyperinflation compatible with COPD. Left upper lobe opacity persists unchanged and may reflect pneumonia until proven otherwise. If felt to be clinically indicated CT of the chest could obtained. Neoplasm not excluded. Heart size is stable. Mediastinal structures are stable and grossly unremarkable. No evidence for hilar prominence. Degenerative changes dorsal spine. IMPRESSION: 1. Left upper lobe opacity persists unchanged and may reflect pneumonia until proven otherwise. If fe lt to be clinically indicated CT of the chest could obtained. Neoplasm not excluded. [facility], , 09/26/2024 1:50 PM
[2024-09-26] MEDS: KETOROLAC 15 MG/ML 1 ML VIAL IVP STA (16:03)
[2024-09-26 16:26] LABS: INR 1.1 (<1.2); Partial Thromboplastin Time 25.6 sec (22.0-30.0); Prothrombin Time 11.6 sec (10.0-12.5)
[2024-09-26 16:42] LABS: Basophils # (A) 0.1 k/uL (0-0.2); Basophils % (A) 1 %; Eosinophils # (A) 0.1 k/uL (0-0.7); Eosinophils % (A) 1 %; HCT 41.6 % (34.0-46.0); HGB 13.6 gm/dL (11.4-16.0); Lymphocytes # (A) 1.5 k/uL (1.0-4.8); Lymphocytes % (A) 18 %; MCH 31.6 pg (25.0-35.0); MCHC 32.6 g/dL (31.0-37.0); Mean Platelet Volume 9.5; Monocytes # (A) 0.5 k/uL (0-1.0); Monocytes % (A) 6 %; Neutrophils # (A) 6.2 k/uL (1.3-7.7); Neutrophils % (A) 71 %; Platelet Count 109 k/uL (150-450); RBC 4.29 m/uL (3.80-5.40); RDW 14.1 % (11.5-15.5); WBC 8.7 k/uL (3.8-10.6)
[2024-09-26 16:43] LABS: ALT 131 U/L (4-34); AST 284 U/L (14-36); African American GFR (CKD) >90 (>60 ml/min/1.73 sqM); Albumin 3.8 g/dL (3.5-5.0); Alkaline Phosphatase 606 U/L (38-126); Anion Gap 12 mmol/L; Blood Urea Nitrogen 15 mg/dL (7-17); Calcium 9.8 mg/dL (8.4-10.2); Carbon Dioxide 23 mmol/L (22-30); Chloride 100 mmol/L (98-107); Glucose 110 mg/dL (74-99); Magnesium 2.1 mg/dL (1.6-2.3); Non-African American GFR(CKD) 88 (>60 ml/min/1.73 sqM); Potassium 4.3 mmol/L (3.5-5.1); Sodium 135 mmol/L (137-145); Total Bilirubin 3.6 mg/dL (0.2-1.3); Total Protein 7.1 g/dL (6.3-8.2)
--- NOTE | 2024-09-26 18:11 | US ---
EXAMINATION TYPE: US gallbladder DATE OF EXAM: 09/26/2024 COMPARISON: 09/18/2024, CT 09/18/2024 CLINICAL INDICATION: Female, 74 years old with history of pain; patient states chest and back pain. s light ruq pain when lying down. nausea TECHNIQUE: Grayscale and color Doppler imaging of the right upper quadrant was performed. FINDINGS: EXAM MEASUREMENTS: Liver Length: 19.5 cm Gallbladder Wall: 0.3 cm CBD: 0.6 cm Right Kidney: 10.5 x 3.8 x 4.6 cm EMBEDDED LINUX ENGINEER NOTES: Pancreas: Obscured by bowel gas Liver: enlarged. heterogeneous. multiple nodules again seen throughout the liver, largest seen in th e right lobe measuring 3.4 x 3.6 x 3.7cm Gallbladder: mobile echogenic foci again seen. wall wnl Evidence for sonographic Verma's sign: no CBD: upper limits of normal Right Kidney: tiny 9 x 6mm anechoic appearing area seen laterally IMPRESSION: 1. Diffuse metastatic disease throughout the liver as seen on prior CT. 2. Cholelithiasis. 3. Simple appearing cyst. [facility], , 09/26/2024 6:09 PM
[2024-09-26] MEDS: SODIUM CHLORIDE 0.9% 1,000 ML IV ONE (20:13)
[2024-09-26] MEDS: MORPHINE SULFATE 4 MG/ML SYRINGE IVP STA (20:13)
--- NOTE | 2024-09-26 20:18 | CT ---
EXAMINATION TYPE: CT angio chest, CT abdomen pelvis w con DATE OF EXAM: 09/26/2024 7:20 PM COMPARISON: 09/18/2024 CLINICAL INDICATION: Female, 74 years old with history of cp; Chest pain in center of chest that radi ate into back right shoulder. TECHNIQUE/CONTRAST: CTA scan of the is performed with IV Contrast, patient injected with 100 ml mL of Isovue 370, MIP lety ges are created and reviewed these are created on a separate workstation. CT scan of the abdomen and pelvis following contrast administration with sagittal coronal reformats. CT DLP: Combined DLP of 1221.5 mGycm, Automated exposure control for dose reduction was used. FINDINGS: Lungs/Pleura: No evidence of focal consolidation, pleural effusion or pneumothorax. Left upper lobe a irspace consolidation. There is a left upper lobe/perihilar mass infiltrating the mediastinum measuri ng up to 6.8 x 6.7 x 3.4 cm. Airway: Large airways are patent. Heart: Size within normal limits. Mild coronary artery calcifications present. Vasculature: There is no evidence for a filling defect within the pulmonary vasculature to suggest ac [place] pulmonary embolism. The pulmonary artery is of normal size. Mediastinum: Mediastinal mass involving the AP window prevascular space extending to the and around t he left main bronchus the esophagus and anterior to the aorta. This extends into the subcarinal regio n. Musculoskeletal: Mild disc degeneration changes are present throughout the thoracolumbar spine second renata to osteophyte formation and facet joint arthropathy. Soft Tissues/lymph nodes: Unremarkable. Lower neck: No significant findings. ABDOMEN: ABDOMEN LIVER: Diffuse low-attenuation to the liver seen on noncontrast CT angiogram. There is diffuse metast atic lesions throughout the liver. There are greater than 50 lesions throughout the liver. GALLBLADDER AND BILE DUCTS: Unremarkable. PANCREAS: Unremarkable. SPLEEN: Unremarkable. ADRENAL GLANDS: Unremarkable. KIDNEYS AND URETERS: No evidence of hydronephrosis or obstructing renal calculus. The ureters are unr emarkable. Nonobstructing left renal calculus measuring up to 9 mm. PELVIS BLADDER: Unremarkable REPRODUCTIVE: Fibroid uterus with coarse calcifications. ABDOMEN & PELVIS STOMACH AND BOWEL: No evidence of bowel obstruction. PERITONEUM/RETROPERITONEUM: No evidence of pneumoperitoneum or free fluid. VASCULATURE: No evidence of aortic aneurysm. MUSCULOSKELETAL: No acute osseous abnormalities, left hip arthroplasty with hardware intact. LYMPH NODES: No gross evidence for lymphadenopathy. SOFT TISSUE/ABDOMINAL WALL: Unremarkable IMPRESSION: 1. No evidence of pulmonary embolism. 2. Left upper lobe consolidation compatible with likely airspace disease possibly secondary to obstru ction from left perihilar mass infiltrating into the mediastinum and surrounding the left main bronch us. 3. Diffuse metastatic disease throughout the liver. There is a greater than 50 lesions. 4. Nonobstructing left renal calculus measuring up to 9 mm. Fracture dislocation is unchanged from pr ior. [facility], , 09/26/2024 8:16 PM
[2024-09-26] MEDS ORDERED: ONDANSETRON 4 MG/2 ML VIAL IVP PRN (20:48)
[2024-09-26] MEDS ORDERED: NALOXONE 0.4 MG/ML 1 ML VIAL IV PRN (20:48)
[2024-09-26] MEDS: SODIUM CHLORIDE 0.9% 1,000 ML IV SCH (20:56)
[2024-09-26] MEDS ORDERED: ACETAMINOPHEN TAB 325 MG TAB PO PRN (23:56)
[2024-09-27] MEDS: AMITRIPTYLINE HCL 10 MG TAB PO SCH (01:31)
--- NOTE | 2024-09-27 01:31 | P.CNPUL ---
History of Present Illness Consult date: 09/27/24 Requesting physician: Stan Masters Reason for consult: lung mass Chief complaint: Shortness of breath, right upper quadrant abdominal pain History of present illness: Patient is a 74-year-old female with limited past medical history. No current primary care provider. Former tobacco smoker, reportedly only smoking "a couple" cigarettes per day for over 50 years. Denies history of COPD. Familial history of cancer, states she has had 3 siblings of cancer, unknown type. Denies personal history of cancer, other than skin lesions that have been removed. Of note, presented the emergency department on 09/18/2024 with a chief complaint of shortness of breath and right upper quadrant abdominal pain. He did recently travel via plane back from [place]. There was concern for possible pulmonary embolism. Chest CTA did not show any evidence of pulmonary embolism. It did show left mediastinal mass with associated obstructive/consolidative changes of the left upper lobe. CT of the abdomen/pelvis concerning for extensive metastatic disease to the liver. Also, fatty liver, nonobstructing left renal calculi, cholelithiasis without evidence of cholecystitis, and other incidental findings. She was discharged with directions to follow-up outpatient. Return to the emergency department yesterday afternoon with similar complaints. Repeat chest CTA showing left upper lobe perihilar mass measuring 6.8 x 6.7 x 3.4 cm surrounding left mainstem bronchus. Left upper lobe opacity consistent with postobstructive atelectasis/infiltrate. Again, numerous liver lesions concerning for metastatic disease. She is currently being evaluated in room 23. Resting comfortably on room air. Over the last 3 to 4 weeks she has had increasing shortness of breath, nonproductive cough, right upper quadrant abdominal pain that wraps around to the back. Denies chest pain, sputum product ion, fevers or chills, hemoptysis. Right upper quadrant abdominal pain rated as 2 on a 10 point numerical scale, described as dull. Previously given Toradol, which has helped marginally. Her appetite has been poor, and she is losing an uncertain amount of weight. Denies any nausea, vomiting, or change in bowel movements. CBC: WBC count 8.7, hemoglobin 13.6, platelets 109. CMP: Sodium 135, potassium 4.3, chloride 100, serum bicarb 23, BUN 15, creatinine 0.64, glucose 110. AST, 284, ALT 131, ALP 606. Total bilirubin 3.6. Lipase 326. Troponin less than 0.012. Normal saline infusing at 75 mL/h. Current vital signs: Afebrile, heart rate 77 bpm, blood pressure 144/88 mmHg, nontachypneic, SpO2 was recorded at 95% on room air. . Review of Systems Constitutional: Reports fatigue, Reports poor appetite, Reports weight loss, Denies chills, Denies fever, Denies night sweats, Denies weight gain Ears, nose, mouth and throat: Denies dysphagia, Denies headache, Denies nasal congestion, Denies nasal discharge, Denies neck fullness/pressure, Denies neck lump, Denies post-nasal drip, Denies sinus pain, Denies sinus pressure, Denies sore throat, Denies voice changes Cardiovascular: Reports dyspnea on exertion, Denies chest pain, Denies leg edema, Denies lightheadedness, Denies orthopnea, Denies palpitations, Denies paroxysmal nocturnal dyspnea, Denies syncope Respiratory: Reports cough, Reports dyspnea, Denies congestion, Denies cough with sputum, Denies excessive sputum, Denies hemoptysis, Denies pain on inspiration Gastrointestinal: Reports abdominal pain, Reports loss of appetite, Denies constipation, Denies diarrhea, Denies hematemesis, Denies hematochezia, Denies indigestion, Denies melena, Denies nausea, Denies vomiting Genitourinary: Denies dysuria Musculoskeletal: Denies limitation of motion Integumentary: Denies rash Neurological: Denies seizures, Denies syncope Psychiatric: Denies change in appetite, Denies depression Hematologic/Lymphatic: Denies lymphadenopathy Past Medical History Past Medical History: No Reported History History of Any Multi-Drug Resistant Organisms: None Reported Past Surgical History: Joint Replacement Additional Past Surgical History / Comment(s): cataract bilateral eyes. left hip replacement. Past Psychological History: No Psychological Hx Reported Smoking Status: Former smoker Past Alcohol Use History: Rare Past Drug Use History: None Reported Medications and Allergies Home Medications Medication Instructions Recorded Confirmed Type Acetaminophen Tab [Tylenol Tab] 1,000 mg PO BID 09/26/24 09/26/24 History Amitriptyline HCl [Elavil] 10 mg PO DIRECTED 09/26/24 09/26/24 History Atorvastatin [Lipitor] 40 mg PO HS 09/26/24 09/26/24 History Benzonatate [Tessalon Perle] 200 mg PO TID PRN 09/26/24 09/26/24 History Ketorolac [Toradol] 10 mg PO Q8HR PRN 09/26/24 09/26/24 History Naproxen [Naprosyn] 500 mg PO DIRECTED PRN 09/26/24 09/26/24 History Allergies Allergy/AdvReac Type Severity Reaction Status Date / Time codeine Allergy Rash/Hives Verified 09/26/24 20:26 Physical Exam Vitals: Vital Signs Temp Pulse Resp BP Pulse Ox 09/27/24 00:14 77 18 144/88 95 09/26/24 20:49 77 16 160/78 95 09/26/24 20:09 87 18 126/71 95 09/26/24 13:35 97.4 F L 85 20 121/78 96 Intake and Output 09/26/24 09/26/24 09/27/24 14:59 22:59 06:59 Other: Weight 77.111 kg GENERAL EXAM: Alert, 74-year-old white female, on room air, comfortable in no apparent distress. HEAD: Normocephalic and atraumatic EYES: Normal reaction of pupils, equal size. NOSE: Clear with pink turbinates. THROAT: No erythema or exudates. NECK: No masses, no JVD. CHEST: No chest wall deformity. LUNGS: Equal air entry with no crackles, wheeze, rhonchi or dullness. No conversational dyspnea or accessory muscle use while at rest CVS: S1 and S2 normal with no audible murmur, regular rhythm. No extra heart sounds ABDOMEN: Abdomen flat, active bowel sounds, hepatomegaly noted, no guarding or rigidity. SPINE: No scoliosis or deformity SKIN: No rashes CENTRAL NERVOUS SYSTEM: No focal deficits, tone is normal in all 4 extremities. EXTREMITIES: There is no peripheral edema, clubbing, or cyanosis. Peripheral pulses are intact. Results - Laboratory Findings CBC and BMP: 09/26/24 16:07 09/26/24 16:07 PT/INR, D-dimer PT 11.6 sec (10.0-12.5) 09/26/24 16:07 INR 1.1 (<1.2) 09/26/24 16:07 Abnormal lab findings: Abnormal Labs 09/26/24 09/26/24 09/26/24 16:07 16:07 16:07 Plt Count 109 L Sodium 135 L Glucose 110 H Total Bilirubin 3.6 H AST 284 H ALT 131 H Alkaline Phosphatase 606 H Lipase 326 H - Diagnostic Findings Chest x-ray: image reviewed CT scan - chest: image reviewed Assessment and Plan Assessment: Left upper lobe perihilar mass, suspicious for bronchogenic carcinoma. Chest CTA demonstrating a left upper lobe perihilar mass measuring 6.8 x 6.7 x 3.4 cm surrounding the left main bronchus. Left upper lobe opacity consistent with postobstructive atelectasis/infiltrate. Dyspnea, secondary to above Numerous liver lesions, suspicious for metastatic disease Right upper quadrant abdominal pain, secondary to above Elevated LFTs, secondary to above Nonobstructive 9 mm left renal calculi Cholelithiasis, without evidence of cholecystitis Former tobacco smoker History of hyperlipidemia Plan: CT findings were reviewed with patient, which are highly suspicious for malignancy with metastatic disease Patient likely candidate for bronchoscopy with tissue biopsy, case will be discussed with my supervising physician Medical oncology is also consulted Pain currently under control with current analgesics Further recommendations will be forthcoming I have personally seen and examined the patient, performed the documentation and the assessment and plan as written. Number of minutes spent on the visit:20 Time with Patient: Greater than 30
--- NOTE | 2024-09-27 02:14 | P.HPIM ---
History of Present Illness H&P Date: 09/26/24 Patient is a 74-year-old female with history of hyperlipidemia presenting with shortness of breath. Patient previously presented at this ED on 09/19/2023 for complaint of shortness of breath and right upper quadrant pain. She states that shortness of breath has been going on for the past 3 to 4 weeks along with a nonproductive cough and right upper quadrant pain. She states she feels short of breath at rest and when exerting herself. Patient admits to decreased appetite and unexplained weight loss, amount unknown. She states she is recently came back home from on a flight from [place]. Patient states she is a former tobacco smoker of 50 years, but states she would only smoke 2 cigarettes a day. She quit smoking 20 years ago. States she has a familial history of cancer with her 3 brothers. She believes it is most likely lung cancer due to their extensive smoking history. Medical history is limited. She states she has not had a PCP for a while, but has recently found one within the past couple days and was told to get a PET scan. Patient denies fever, headache, chest pain, nausea, vomiting, diarrhea. CXR independently interpreted displaying left upper lobe opacity Chest CTA displaying no evidence of pulmonary embolism, diffuse metastatic disease throughout the liver, left upper lobe consolidation, nonobstructing left renal calculus measuring up to 9 mm Abdominal/pelvis CT displayed same as above Gallbladder ultrasound displaying diffuse metastatic disease throughout the liver as seen from CT, cholelithiasis, simple appearing cyst T 97.4 F, [place] 85, RR 20, BP 121/78, O2 sat 96% on room air Review of systems: Pertinent positives and negatives as discussed in HPI, a complete review of systems was performed and all other systems are negative. Physical examination: Vital signs reviewed General: non toxic, no distress, appears at stated age Derm: no unusual rashes/lesions, warm Head: atraumatic, normocephalic, symmetric Eyes: EOMI, anicteric sclera, pupils equal round reactive to light ENT: Nose and ears atraumatic Mouth: no lip lesion, mucus membranes moist Cardiovascular: S1S2 reg, no murmur, positive dorsalis pedis pulse bilateral, no edema Lungs: CTA bilateral, no rhonchi, no rales, no accessory muscle use Abdominal: soft, nontender to palpation, no guarding Ext: muscle strength 5 out of 5 in all 4 extremities grossly, no gross muscle atrophy Neuro: CN II-XI grossly intact, no gross focal neuro deficits Psych: Alert, oriented to person, place, and time Assessment/Plan: Patient is a 74-year-old female with hyperlipidemia presenting with shortness of breath. ED documentation reviewed. Discussed with patient. The patient is admitted with an anticipated greater than 2 midnight stay for evaluation of highly suspicious malignancy with metastatic disease. Active: #. Suspected malignancy with metastatic disease Transminitis cholelithiasis Chest CTA and abdominal/pelvic CT displaying no evidence of pulmonary embolism, diffuse metastatic disease throughout the liver (greater than 50 lesions), left mediastinal mass, nonobstructive 9 mm left renal calculi AST 284, ALT 131, alk phos 606, lipase 326 Patient endorsing abdominal pain, mostly in the right upper quadrant Acetaminophen 650 mg p.o. every 6 hours as needed, etodolac 300 mg p.o. every 8 hours as needed, morphine sulfate 4 mg IV every 4 hours as needed for pain management Zofran 4 mg IVP every 8 hours as needed NS 0.9% at 75 cc an hour Pulmonology consulted Hematology/oncology consulted Chronic: Hyperlipidemia: Atorvastatin 40 mg p.o. at bedtime DVT prophylaxis: Lovenox 40 SQ daily CODE STATUS: Full code Anticipated discharge place: Pending clinical course Omar Chatman MD PGY-1 IM Dictation was produced using [employer] dictation software. please excuse any grammatical, word or spelling errors. I have seen and evaluated the patient today. I Discussed the case with the resid ent and agree with the resident's findings I edited the assessment and plan as necessary as documented in the resident's note. Past Medical History Past Medical History: No Reported History History of Any Multi-Drug Resistant Organisms: None Reported Past Surgical History: Joint Replacement Additional Past Surgical History / Comment(s): cataract bilateral eyes. left hip replacement. Past Psychological History: No Psychological Hx Reported Smoking Status: Former smoker Past Alcohol Use History: Rare Past Drug Use History: None Reported Medications and Allergies Home Medications Medication Instructions Recorded Confirmed Type Acetaminophen Tab [Tylenol Tab] 1,000 mg PO BID 09/26/24 09/26/24 History Amitriptyline HCl [Elavil] 10 mg PO DIRECTED 09/26/24 09/26/24 History Atorvastatin [Lipitor] 40 mg PO HS 09/26/24 09/26/24 History Benzonatate [Tessalon Perle] 200 mg PO TID PRN 09/26/24 09/26/24 History Ketorolac [Toradol] 10 mg PO Q8HR PRN 09/26/24 09/26/24 History Naproxen [Naprosyn] 500 mg PO DIRECTED PRN 09/26/24 09/26/24 History Allergies Allergy/AdvReac Type Severity Reaction Status Date / Time codeine Allergy Rash/Hives Verified 09/26/24 20:26 Physical Exam Vitals: Vital Signs Temp Pulse Resp BP Pulse Ox 09/26/24 20:49 77 16 160/78 95 09/26/24 20:09 87 18 126/71 95 09/26/24 13:35 97.4 F L 85 20 121/78 96 Intake and Output 09/26/24 09/26/24 09/27/24 14:59 22:59 06:59 Other: Weight 77.111 kg Results CBC & Chem 7: 09/26/24 16:07 09/26/24 16:07 Labs: Abnormal Lab Results - Last 24 Hours (Table) 09/26/24 09/26/24 09/26/24 Range/Units 16:07 16:07 16:07 Plt Count 109 L (150-450) k/uL Sodium 135 L (137-145) mmol/L Glucose 110 H (74-99) mg/dL Total Bilirubin 3.6 H (0.2-1.3) mg/dL AST 284 H (14-36) U/L ALT 131 H (4-34) U/L Alkaline Phosphatase 606 H (38-126) U/L Lipase 326 H (23-300) U/L
[2024-09-27] MEDS: ETODOLAC 300 MG CAPSULE PO PRN (05:08)
[2024-09-27 05:53] LABS: ALT 108 U/L (4-34); AST 207 U/L (14-36); African American GFR (CKD) >90 (>60 ml/min/1.73 sqM); Albumin 3.2 g/dL (3.5-5.0); Alkaline Phosphatase 477 U/L (38-126); Anion Gap 11 mmol/L; Blood Urea Nitrogen 17 mg/dL (7-17); Calcium 9.2 mg/dL (8.4-10.2); Carbon Dioxide 23 mmol/L (22-30); Chloride 99 mmol/L (98-107); Glucose 142 mg/dL (74-99); Magnesium 1.8 mg/dL (1.6-2.3); Non-African American GFR(CKD) 90 (>60 ml/min/1.73 sqM); Phosphorus 3.1 mg/dL (2.5-4.5); Potassium 3.7 mmol/L (3.5-5.1); Sodium 133 mmol/L (137-145); Total Protein 5.9 g/dL (6.3-8.2)
[2024-09-27 06:41] LABS: Basophils # (A) 0.1 k/uL (0-0.2); Basophils % (A) 1 %; Eosinophils # (A) 0.1 k/uL (0-0.7); Eosinophils % (A) 1 %; HCT 37.1 % (34.0-46.0); HGB 11.8 gm/dL (11.4-16.0); Lymphocytes # (A) 1.2 k/uL (1.0-4.8); Lymphocytes % (A) 15 %; MCH 31.3 pg (25.0-35.0); MCHC 31.8 g/dL (31.0-37.0); MCV 98.5 fL (80.0-100.0); Mean Platelet Volume 9.6; Monocytes # (A) 0.5 k/uL (0-1.0); Monocytes % (A) 7 %; Neutrophils # (A) 5.8 k/uL (1.3-7.7); Neutrophils % (A) 74 %; RBC 3.76 m/uL (3.80-5.40); RDW 14.2 % (11.5-15.5); WBC 7.8 k/uL (3.8-10.6)
[2024-09-27] MEDS ORDERED: ENOXAPARIN 40 MG/0.4 ML SYRINGE SQ SCH (09:00)
[2024-09-27 09:11] LABS: Platelet Count 86 k/uL (150-450); RBC Morphology Normal
[2024-09-27] MEDS: MORPHINE SULFATE 4 MG/ML SYRINGE IV PRN (11:35)
--- NOTE | 2024-09-27 12:35 | P.PN ---
Subjective Progress Note Date: 09/27/24 Hospital course: Patient is a 74-year-old female with a past medical history of hyperlipidemia, osteoarthritis, cataracts, and recently diagnosed lung mass on 09/18/2024. She presented to the emergency department on 09/26/2024 with a chief complaint of shortness of breath and right upper quadrant pain. Upon arrival to our facility, patient underwent evaluation in the emergency department. Vital signs upon arrival show blood pressure 121/78, heart rate 85, respiratory rate 20, temp 97.4 F, and SpO2 of 96% on room air. Chest x-ray completed showing left upper lobe opacity. Diffuse metastatic disease throughout the liver and cholelithiasis. Labs completed and reviewed. CBC showing thrombocytopenia with platelet count of 109. Coagulation profile normal findings. BMP showing sodium 135 and glucose of 110. Magnesium 2.1. Liver profile showing hyper bilirubinemia with smith total bili of 3.6, AST of 284, ALT of 131, and alkaline phosphatase of 606. Troponin was negative at less than 0.012. Lipase was elevated at 326. CT abdomen and pelvis with contrast and CTA chest was completed showing no evidence of pulmonary emboli showing left upper lobe consolidation compatible with likely airspace disease possibly secondary to obstruction from left perihilar mass infiltrating in the mediastinum and surrounding the left main bronchus with diffuse metastatic disease throughout the liver with reported greater than 50 lesions, nonobstructive left renal calculus measuring up to 9 mm. She was admitted under services with consultation to vulcanizing machine operator and oncologist. Physical exam: Patient seen and fully evaluated at bedside this morning. She reports continued right upper quadrant right-sided back pain. She denies any other complaints including nausea, vomiting, shortness of breath, chest pain, palpitations, or any other complaints at this time. Family at bedside. All questions answered at this time. Vital signs reviewed and stable. General: Nontoxic, no distress and appears stated age. Derm: Skin warm and dry, normal coloration for ethnicity. Head: Atraumatic, normocephalic and symmetric. Eyes: EOM's intact, no lid lag, and anicteric sclera Mouth: no lip lesions, mucus membranes moist Cardiovascular: regular rate and rhythm with normal S1S2, no murmur, positive posterior tibial pulses bilaterally, and cap refill < 2 seconds. Lungs: Respirations even, regular, and unlabored on room air. Lungs CTA bilaterally, no rhonchi, no rales, no wheezing, and no accessory muscle usage. Abdominal: soft, RUQ tenderness upon palpation. hepatomegaly present Ext: ROM intact. No gross muscle atrophy, no edema, no contractures Neuro: Speech clear, face symmetrical and CN II-XII grossly intact with no noted focal neuro deficits Psych: Alert and oriented to person, place, time, and situation. Appropriate and pleasant affect. Assessment and Plan of Care: Suspected malignancy with metastatic disease with left mediastinal mass and multiple liver lesions (> 50 lesions) Hyperbilirubinemia with Transminitis, likely secondary to above Thrombocytopenia, likely secondary to above Cholelithiasis Right upper quadrant pain -Hematology/oncology following, discussed plan of care with oncology EXCHANGE OPERATOR -Pulmonology following, reviewed documentation in chart -IR consulted for ultrasound-guided biopsy of liver lesions -Chest CTA and abdominal/pelvic CT displaying no evidence of pulmonary embolism, diffuse metastatic disease throughout the liver (greater than 50 lesions), left mediastinal mass, nonobstructive 9 mm left renal calculi -Total bili 3.6. AST 284, ALT 131, alk phos 606, lipase 326 -Symptomatic care and pain management. Acetaminophen 650 mg p.o. every 6 hours as needed for mild pain/fever, etodolac 300 mg p.o. every 8 hours as needed for moderate pain , and morphine sulfate 4 mg IV every 4 hours as needed for severe pain -Zofran 4 mg IVP every 8 hours as needed for nausea or vomiting -NS 0.9% at 75 cc an hour Hyperlipidemia: -Continue Atorvastatin 40 mg nightly. Data and imaging reviewed: -Vital signs reviewed. Blood pressure 145/78, heart rate 70, respiratory rate 16, temp 98.0 F, and SpO2 of 96% on room air -Morning labs completed and reviewed. CBC showing thrombocytopenia with platelet count of 86. BMP showing hyponatremia with sodium of 133 and mild hyperglycemia with blood glucose of 142. Magnesium was 1.8. Liver profile showing elevated total bili of 3.0, AST of 207, ALT of 108 and alkaline phosphat ase of 477. CODE STATUS: Full code DVT prophylaxis: SCDs pending completion of liver lesion biopsy Discussed with: Patient, patient's family at bedside, RN, and hematology/oncology EXCHANGE OPERATOR Anticipated discharge date: Pending clinical course Anticipated discharge place: Home Patient was seen independently by Nurse Pracitioner. This document was prepared using [employer] dictation software. Please allow for errors in fancy packer, while rare they do occur. Jasper Long EXCHANGE OPERATOR rendered care for this patient independently, reviewed the findings and plan as documented in the note above and agree with plan. I did not physically speak with or examine the patient on this date. Objective - Vital Signs Vital signs: Vital Signs Temp 98.0 F 09/27/24 07:48 Pulse 70 09/27/24 07:48 Resp 16 09/27/24 07:48 BP 145/78 09/27/24 07:48 Pulse Ox 96 09/27/24 07:48 FiO2 Intake & Output 09/26/24 09/27/24 09/27/24 18:59 06:59 18:59 Weight 77.111 kg - Labs CBC & Chem 7: 09/27/24 04:40 09/27/24 04:40 Labs: Abnormal Lab Results - Last 24 Hours (Table) 09/26/24 09/26/24 09/26/24 Range/Units 16:07 16:07 16:07 RBC (3.80-5.40) m/uL Plt Count 109 L (150-450) k/uL Sodium 135 L (137-145) mmol/L Glucose 110 H (74-99) mg/dL Total Bilirubin 3.6 H (0.2-1.3) mg/dL AST 284 H (14-36) U/L ALT 131 H (4-34) U/L Alkaline Phosphatase 606 H (38-126) U/L Total Protein (6.3-8.2) g/dL Albumin (3.5-5.0) g/dL Lipase 326 H (23-300) U/L 09/27/24 09/27/24 Range/Units 04:40 04:40 RBC 3.76 L (3.80-5.40) m/uL Plt Count 86 L (150-450) k/uL Sodium 133 L (137-145) mmol/L Glucose 142 H (74-99) mg/dL Total Bilirubin 3.0 H (0.2-1.3) mg/dL AST 207 H (14-36) U/L ALT 108 H (4-34) U/L Alkaline Phosphatase 477 H (38-126) U/L Total Protein 5.9 L (6.3-8.2) g/dL Albumin 3.2 L (3.5-5.0) g/dL Lipase (23-300) U/L
--- NOTE | 2024-09-27 12:46 | US ---
EXAMINATION TYPE: US biopsy liver DATE OF EXAM: 09/27/2024 12:34 PM COMPARISON: CT abdomen and pelvis from one day earlier and older studies. CLINICAL INDICATION:Female, 74 years old with history of abnormal CT, multiple masses; , ATTENDING: Dr. Gan PROCEDURE: Informed consent was obtained. The risks and benefits of the procedure were discussed with the patien t. The site was marked. Timeout procedure was performed Ultrasound imaging demonstrates hepatomegaly and heterogeneous appearance of the liver with multiple heterogeneous hypoechoic masses. Lesion anterior left hepatic lobe was targeted The patient was prepped, draped in the usual sterile fashion, and locally anesthetized with 1% lidoca ine buffered with bicarbonate. A 17-gauge introducer is introduced under ultrasound guidance. Throug h this 18-gauge Bard needle was used to obtain 2 core samples of targeted mass. Samples were sent to the pathology department for further analysis. Patient tolerated the procedure without incident and was sent back to floor in stable condition. Estimated blood loss was minimal. IMPRESSION: Successful ultrasound guided core biopsy of targeted liver lesion. [facility], , 09/27/2024 12:44 PM
--- NOTE | 2024-09-27 16:17 | P.CONS ---
History of Present Illness - Reason for Consult Consult date: 09/27/24 lung mass Requesting physician: Stan Masters - Chief Complaint SOB - History of Present Illness Mrs. Slade is a 74-year-old female who recently moved to the area, established with PCP Dr. Leal lately who reports in August she had a sinus infection. This was treated with [id number] medications, she flew to [place] noted that her ears then were plugged and just was not feeling good. She was prescribed from antibiotics, she stopped these as she felt like she was getting sicker. She ended up coming to the emergency department for right upper quadrant and back pain. She reports that this is not constant, aggravated by certain movements and coughing, she uses Tylenol but, that does not provide significant relief. She states that because of the pain she is lost her appetite, she states weight loss, not a specific amount, but attributed it to them recently moving, being very busy. She has noted some shortness of breath that is newer for her, epistaxis, she is able to achieve hemostasis. She denies fevers, lymphadenopathy, headaches, blurred vision. She has had Cologuard/similar testing recently. No recent mammograms. She has personal his tory of skin cancers that have been removed, no other malignancies. She has a history of smoking less than a half a pack per day, intermittently quitting for periods of time. CTA of the chest reports left upper lobe airspace consolidation, left upper lobe/perihilar mass infiltrating the mediastinum measuring 6.8 x 6.7 x 3.4 cm., No PE. The mediastinal mass is extending to and around the left main bronchus and the esophagus and anterior to the aorta, there is also diffuse metastatic disease throughout the liver, greater than 50 lesions. CBC showing normal WBC of 7.8, low normal hemoglobin of 11.8, hematocrit 37.4, platelet count 86,000. Bilirubin 3 AST/ALT 207/108, alk phos 477, lipase 326, sodium 133 Review of Systems 14 point ROS is neg except as stated in HPI Past Medical History Past Medical History: No Reported History History of Any Multi-Drug Resistant Organisms: None Reported Past Surgical History: Joint Replacement Additional Past Surgical History / Comment(s): cataract bilateral eyes. left hip replacement. Past Psychological History: No Psychological Hx Reported Smoking Status: Former smoker Past Alcohol Use History: Rare Past Drug Use History: None Reported Medications and Allergies Home Medications Medication Instructions Recorded Confirmed Type Acetaminophen Tab [Tylenol Tab] 1,000 mg PO BID 09/26/24 09/26/24 History Amitriptyline HCl [Elavil] 10 mg PO DIRECTED 09/26/24 09/26/24 History Atorvastatin [Lipitor] 40 mg PO HS 09/26/24 09/26/24 History Benzonatate [Tessalon Perle] 200 mg PO TID PRN 09/26/24 09/26/24 History Ketorolac [Toradol] 10 mg PO Q8HR PRN 09/26/24 09/26/24 History Naproxen [Naprosyn] 500 mg PO DIRECTED PRN 09/26/24 09/26/24 History Allergies Allergy/AdvReac Type Severity Reaction Status Date / Time codeine Allergy Rash/Hives Verified 09/26/24 20:26 Physical Exam Vitals: Vital Signs Temp Pulse Pulse Resp BP BP Pulse Ox 09/27/24 07:48 98.0 F 70 16 145/78 96 09/27/24 05:09 84 16 112/53 95 09/27/24 00:14 77 18 144/88 95 09/26/24 20:49 77 16 160/78 95 09/26/24 20:09 87 18 126/71 95 09/26/24 13:35 97.4 F L 85 20 121/78 96 - Constitutional General appearance: average body habitus, cooperative, no acute distress - EENT Eyes: anicteric sclerae, EOMI ENT: hearing grossly normal, normal oropharynx - Respiratory Respiratory: bilateral: CTA - Cardiovascular Rhythm: regular Heart sounds: normal: S1, S2 Abnormal Heart Sounds: no systolic murmur, no diastolic murmur, no rub, no S3 Gallop, no S4 Gallop, no click, no other leg Peripheral Edema: bilateral: None - Gastrointestinal General gastrointestinal: no absent bowel sounds, no decreased bowel sounds, no distended, hepatomegaly, no hyperactive bowel sounds, normal bowel sounds, no organomegaly, no rigid, no scaphoid, soft, no splenomegaly, tenderness, no umbilical hernia, no ventral hernia - Integumentary Integumentary: normal - Neurologic Neurologic: CNII-XII intact - Musculoskeletal Musculoskeletal: strength equal bilaterally - Psychiatric Psychiatric: A&O x's 3, appropriate affect, intact judgment & insight Results CBC & Chem 7: 09/27/24 04:40 09/27/24 04:40 Labs: Abnormal Lab Results - Last 24 Hours (Table) 09/26/24 09/26/24 09/26/24 Range/Units 16:07 16:07 16:07 RBC (3.80-5.40) m/uL Plt Count 109 L (150-450) k/uL Sodium 135 L (137-145) mmol/L Glucose 110 H (74-99) mg/dL Total Bilirubin 3.6 H (0.2-1.3) mg/dL AST 284 H (14-36) U/L ALT 131 H (4-34) U/L Alkaline Phosphatase 606 H (38-126) U/L Total Protein (6.3-8.2) g/dL Albumin (3.5-5.0) g/dL Lipase 326 H (23-300) U/L 09/27/24 09/27/24 Range/Units 04:40 04:40 RBC 3.76 L (3.80-5.40) m/uL Plt Count (150-450) k/uL Sodium 133 L (137-145) mmol/L Glucose 142 H (74-99) mg/dL Total Bilirubin 3.0 H (0.2-1.3) mg/dL AST 207 H (14-36) U/L ALT 108 H (4-34) U/L Alkaline Phosphatase 477 H (38-126) U/L Total Protein 5.9 L (6.3-8.2) g/dL Albumin 3.2 L (3.5-5.0) g/dL Lipase (23-300) U/L CT scan - abdomen: report reviewed CT scan - chest: report reviewed, image reviewed CT scan - pelvis: report reviewed Assessment and Plan (1) Lung mass Current Visit: Yes Status: Acute Priority: High Code(s): R91.8 - OTHER NONSPECIFIC ABNORMAL FINDING OF LUNG FIELD SNOMED Code(s): 401568650 (2) Abnormal CT scan Current Visit: Yes Status: Acute Priority: High Code(s): R93.89 - ABNORMAL FINDINGS ON DX IMAGING OF OTH BODY STRUCTURES SNOMED Code(s): 956068903 Plan: Abnormal CT scan, lung mass, innumerable liver lesions -Reviewed with patient and at the bedside the concerning findings for malignancy on imaging. -Patient has already been assessed by Pulmonary, who is recommending liver biopsy. Agree with the same -It was discussed with patient and her that once there is a pathologic diagnosis further recommendations will follow. Pt will need to complete staging, this will be ordered after biopsy. We will discuss diagnosis, prognosis and available treatment options. Any positive specimens will be sent off for additional molecular testing. -Once patient has had biopsy, if she is stable form Internal Medicine standpoint and consulting Physicians, and her pain is controlled, she can be discharged from an Oncology standpoint with follow-up in the outpatient setting. All of the patient and her 's questions were answered to their satisfaction at this time. Doctor attests: I performed a history and physical examination of this patient, developed impression and plan of care. Discussed with dictator. I agree with dictators note, documented as a scribe.
[2024-09-27] MEDS: ATORVASTATIN 40 MG TAB PO SCH (20:29)
[2024-09-28] MEDS: BENZONATATE 100 MG CAP PO PRN (00:47)
--- NOTE | 2024-09-28 12:50 | MR ---
EXAMINATION TYPE: MR brain wo/w con DATE OF EXAM: 09/28/2024 12:42 PM COMPARISON: None. CLINICAL INDICATION: Female, 74 years old with history of staging; PHH, Weakness, evaluating for brai n mets. Lung/liver cancer. TECHNIQUE: Multi planar, multi sequence imaging was performed through the brain including: T1, T2, In version recovery, susceptibility weighted imaging and gradient echo imaging and Diffusion weighted im aging. The patient was then given intravenous contrast and multi planar, T1 fat-saturation images wer e obtained. IV Contrast: 7 mL Gadobutrol FINDINGS: Mild cerebral atrophy with proportional dilation of ventricular system. Diffusion-weighted imaging s hows no evidence of restricted diffusion to suggest acute/subacute infarct. Intracranial arterial doretha w voids are maintained. Midline structures show no abnormality. Scattered foci of high T2 signal inte nsity are seen within the periventricular white matter. The susceptibility weighted images do not rev eal any evidence for micro-hemorrhage. After administration of gadolinium, no abnormal enhancement is seen. The bone marrow signal is within normal limits. Paranasal sinuses and mastoid air cells: No significant paranasal sinus disease. Trace free mastoid a ir cell effusion. Visualized orbits: Bilateral aphakia IMPRESSION: 1. No evidence of intracranial mass, acute/subacute infarct, or abnormal enhancement. 2. Nonspecific white matter changes, likely related to small vessel ischemic disease. [facility], , 09/28/2024 12:48 PM
[2024-09-28] MEDS: oxyCODONE-APAP 5-325MG 1 EACH TAB PO SCH (13:50)
--- NOTE | 2024-09-28 13:52 | P.PN ---
Subjective Progress Note Date: 09/28/24 74 year old F with PMH of HLD, OA, cataracts, lung mass diagnosed on 09/18. She presented to the emergency department on 09/26/2024 with a chief complaint of shortness of breath and right upper quadrant pain. Upon arrival to our facility, patient underwent evaluation. Vital signs upon arrival show BP 121/7 8, HR 85, RR 20, T 97.4 F, and SpO2 of 96% on RA. Chest x-ray completed showing left upper lobe opacity. GB US showed diffuse metastatic disease throughout the liver and cholelithiasis. CBC showing platelet count of 109. Coagulation profile normal findings. BMP showing sodium 135 and glucose of 110. Magnesium 2.1. Liver profile showing total bili of 3.6, AST of 284, ALT of 131, and alkaline phosphatase of 606. Troponin was negative at less than 0.012. Lipase was elevated at 326. CT abdomen and pelvis with contrast and CTA chest was completed showing no evidence of pulmonary emboli showing left upper lobe consolidation compatible with likely airspace disease possibly secondary to obst ruction from left perihilar mass infiltrating in the mediastinum and surrounding the left main bronchus with diffuse metastatic disease throughout the liver with reported greater than 50 lesions, nonobstructive left renal calculus measuring up to 9 mm. She was admitted under services with consultation to activity aid and oncologist. She underwent liver biopsy with IR on 09/27. 09/28 Patient was seen and examined. She reports RUQ pain 7-8/10 severity. No new labs done today. MRI brain shows no enhancing lesions. General: non toxic, no distress, appears at stated age Derm: warm, dry Head: atraumatic, normocephalic, symmetric Mouth: no lip lesion, mucus membranes moist Cardiovascular: Good distal perfusion in all 4 extremities Lungs: Breathing comfortably, no accessory muscle use Ext: no gross muscle atrophy, no edema, no contractures Neuro: no focal neuro deficits Psych: Alert and oriented Based on my assessment of this patient, this patient meets a high complexity level of care. Suspected malignancy with metastatic disease with left mediastinal mass and multiple liver lesions (> 50 lesions): Status post IR liver lesion biopsy. MRI brain with no enhancing lesions. Started on MS Contin 15 mg PO Q6H PRN. Hyperbilirubinemia with Transminitis, likely secondary to above Thrombocytopenia, likely secondary to above Cholelithiasis Right upper quadrant pain Hyperlipidemia: Stop Lipitor as it may worsen transaminitis. Anticipate discharge when pain is controlled. CODE STATUS: FULL CODE DVT Prophylaxis: SCD GI Prophylaxis: Designated medical POA if patient is not able to make medical decisions for themselves: I have reviewed the following production support consultant notes: Oncology note. I have reviewed the results of the following tests: I have ordered the following tests: CBC and CMP in the AM. I have discussed the care of this patient with the following independent historian: Family. I have independently interpreted the following test below: I have discussed the management of this patient with the following physician: Objective - Vital Signs Vital signs: Vital Signs Temp 98.2 F 09/28/24 12:35 Pulse 72 09/28/24 12:35 Resp 16 09/28/24 12:35 BP 110/68 09/28/24 12:35 Pulse Ox 98 09/28/24 12:35 FiO2 Intake & Output 09/27/24 09/28/24 09/28/24 18:59 06:59 18:59 Intake Total 1320 1050 120 Balance 1320 1050 120 Weight 77.111 kg Intake: Oral 1320 1050 120 Other: Voiding Method Toilet Toilet # Voids 4 - Labs CBC & Chem 7: 09/27/24 04:40 09/27/24 04:40
--- NOTE | 2024-09-28 13:54 | P.PN ---
Subjective Progress Note Date: 09/28/24 Patient is a 74-year-old female with limited past medical history. No current primary care provider. Former tobacco smoker, reportedly only smoking "a couple" cigarettes per day for over 50 years. Denies history of COPD. Familial history of cancer, states she has had 3 siblings of cancer, unknown type. Denies personal history of cancer, other than skin lesions that have been removed. Of note, presented the emergency department on 09/18/2024 with a chief complaint of shortness of breath and right upper quadrant abdominal pain. He did recently travel via plane back from [place]. There was concern for possible pulmonary embolism. Chest CTA did not show any evidence of pulmonary embolism. It did show left mediastinal mass with associated obstructive/consolidative changes of the left upper lobe. CT of the abdomen/pelvis concerning for extensive metastatic disease to the liver. Also, fatty liver, nonobstructing left renal calculi, cholelithiasis without evidence of cholecystitis, and other incidental findings. She was discharged with directions to follow-up outpatient. Return to the emergency department yesterday afternoon with similar complaints. Repeat chest CTA showing left upper lobe perihilar mass measuring 6.8 x 6.7 x 3.4 cm surrounding left mainstem bronchus. Left upper lobe opacity consistent with postobstructive atelectasis/infiltrate. Again, numerous liver lesions concerning for metastatic disease. She is currently being evaluated in room 23. Resting comfortably on room air. Over the last 3 to 4 weeks she has had increasing shortness of breath, nonproductive cough, right upper quadrant abdominal pain that wraps around to the back. Denies chest pain, sputum production, fevers or chills, hemoptysis. Right upper quadrant abdominal pain rated as 2 on a 10 point numerical scale, described as dull. Previously given Toradol, which has helped marginally. Her appetite has been poor, and she is losing an uncertain amount of weight. Denies any nausea, vomiting, or change in bowel movements. CBC: WBC count 8.7, hemoglobin 13.6, platelets 109. CMP: Sodium 135, potassium 4.3, chloride 100, serum bicarb 23, BUN 15, creatinine 0.64, glucose 110. AST, 284, ALT 131, ALP 606. Total bilirubin 3.6. Lipase 326. Troponin less than 0.012. Normal saline infusing at 75 mL/h. Current vital signs: Afebrile, heart rate 77 bpm, blood pressure 144/88 mmHg, nontachypneic, SpO2 was recorded at 95% on room air. . The patient is seen today September 28, 2024 in follow-up on the regular medical floor. She is currently sitting up in bed. Awake and alert in no acute distress. She is maintaining good O2 saturations in the high 90s on 2 L/min per nasal cannula. She has been afebrile. Hemodynamically stable. Having some right sided abdominal discomfort. She did undergo a core liver biopsy yesterday. Pathology pending. MRI of the brain today revealed no evidence of intracranial mass, acute/subacute infarct or abnormal enhancement. Count 7.8. Hemoglobin 11.8. Platelets 86,000. Sodium 133. Potassium 3.7. Bicarb 23. BUN 17. Creatinine 0.61. Glucose 142. AST 207. ALT 108. Alk phos 477. Her pain is well-controlled with oral morphine. Objective - Vital Signs Vital signs: Vital Signs Temp 98.2 F 09/28/24 12:35 Pulse 72 09/28/24 12:35 Resp 16 09/28/24 12:35 BP 110/68 09/28/24 12:35 Pulse Ox 98 09/28/24 12:35 FiO2 Intake & Output 09/27/24 09/28/24 09/28/24 18:59 06:59 18:59 Intake Total 1320 1050 120 Balance 1320 1050 120 Weight 77.111 kg Intake: Oral 1320 1050 120 Other: Voiding Method Toilet Toilet # Voids 4 - Exam GENERAL EXAM: Alert, pleasant 74-year-old female, sitting up in bed, on room air, comfortable in no apparent distress. HEAD: Normocephalic and atraumatic EYES: Normal reaction of pupils, equal size. NOSE: Clear with pink turbinates. THROAT: No erythema or exudates. NECK: No masses, no JVD. CHEST: No chest wall deformity. LUNGS: Equal air entry with no crackles, wheeze, rhonchi or dullness. No conversational dyspnea or accessory muscle use. CVS: S1 and S2 normal with no audible murmur, regular rhythm. No extra heart sounds. ABDOMEN: Abdomen flat, active bowel sounds, hepatomegaly noted, no guarding or rigidity. SPINE: No scoliosis or deformity SKIN: No rashes CENTRAL NERVOUS SYSTEM: No focal deficits, tone is normal in all 4 extremities. EXTREMITIES: There is no peripheral edema, clubbing, or cyanosis. Peripheral pulses are intact. - Labs CBC & Chem 7: 09/27/24 04:40 09/27/24 04:40 Assessment and Plan Assessment: Left upper lobe perihilar mass, suspicious for bronchogenic carcinoma. Chest CTA demonstrating a left upper lobe perihilar mass measuring 6.8 x 6.7 x 3.4 cm surrounding the left main bronchus. Left upper lobe opacity consistent with postobstructive atelectasis/infiltrate. Acute hypoxemic respiratory failure secondary to above Numerous liver lesions, suspicious for metastatic disease. Liver biopsy performed on 09/27/2024 Right upper quadrant abdominal pain, secondary to above Elevated LFTs, secondary to above Nonobstructive 9 mm left renal calculi Cholelithiasis, without evidence of cholecystitis Former tobacco smoker History of hyperlipidemia Plan: The patient was seen and evaluated Imaging, labs and medications reviewed No evidence of metastasis to the brain Awaiting liver biopsy results Could be discharged to home Assure adequate pain control Evaluate for possible home oxygen To follow closely with oncology Suspect underlying COPD To follow-up in our office 1 week postdischarge I have personally seen and examined the patient, performed the documentation and the assessment and plan as written. Number of minutes spent on the visit: 10 Dictation was produced using [employer] dictation software. Please excuse any grammatical, word or spelling errors.
[2024-09-28] MEDS: polyethylene glycoL 3350 17 GM POWD.PACK PO SCH (14:31)
--- NOTE | 2024-09-28 14:32 | P.PN ---
Subjective Progress Note Date: 09/28/24 Principal diagnosis: lung mass, liver lesions When seen today patient's and daughter are at the bedside. Patient is reporting good pain control with IV morphine, pain score about a 2 at best, which is very manageable for her. No new symptoms to report, liver biopsy done. Pt daughter had many questions and concerns. Objective - Vital Signs Vital signs: Vital Signs Temp 98.6 F 09/28/24 07:14 Pulse 77 09/28/24 10:04 Resp 16 09/28/24 07:14 BP 112/68 09/28/24 10:04 Pulse Ox 93 L 09/28/24 10:04 FiO2 Intake & Output 09/27/24 09/28/24 09/28/24 18:59 06:59 18:59 Intake Total 1320 1050 120 Balance 1320 1050 120 Weight 77.111 kg Intake: Oral 1320 1050 120 Other: Voiding Method Toilet Toilet # Voids 4 - Constitutional General appearance: Present: average body habitus, cooperative, no acute distress - EENT Eyes: Present: anicteric sclerae, EOMI ENT: Present: hearing grossly normal - Respiratory Details: resp unlabored - Cardiovascular Details: radial pulse 2+, regular - Peripheral edema leg Peripheral Edema: bilateral: None - Gastrointestinal General gastrointestinal: Present: soft, tenderness (RUQ) - Integumentary Integumentary: Present: normal - Neurologic Neurologic: Present: CNII-XII intact - Musculoskeletal Musculoskeletal: Present: strength equal bilaterally - Psychiatric Psychiatric: Present: A&O x's 3, appropriate affect, intact judgment & insight - Labs CBC & Chem 7: 09/27/24 04:40 09/27/24 04:40 Assessment and Plan (1) Lung mass Current Visit: Yes Status: Acute Priority: High Code(s): R91.8 - OTHER NONSPECIFIC ABNORMAL FINDING OF LUNG FIELD SNOMED Code(s): 455465766 (2) Abnormal CT scan Current Visit: Yes Status: Acute Priority: High Code(s): R93.89 - ABNORMAL FINDINGS ON DX IMAGING OF OTH BODY STRUCTURES SNOMED Code(s): 390444207 Plan: Abnormal CT scan, lung mass, innumerable liver lesions -Summarized pt hospital course, work up so far, what results are pending, concerns for malignancy. All questions answered to their satisfaction -Liver Bx done 09/27, pt tolerated procedure well, path pending -Once there is a pathologic diagnosis further recommendations will follow. Have CT CAP, MRI brain ordered to complete staging. Any positive specimens will be sent off for additional molecular testing-this was also discussed with pt and family. -Today, converted IV morphine to oral equivalent with Pharmacist. Will see if pt has adequate pain control on the same, in AM. Miralax daily-per pt preference- for prevention of narcotic induced constipation -Once patient has had biopsy, pain mgmt in place, she is ok from an Oncology standpoint for discharge once cleared by Internal Medicine standpoint and consulting Physicians
[2024-09-28 14:58] VITALS: BMI 25.1
[2024-09-28] MEDS: MORPHINE SULFATE IR 15 MG TABLET PO PRN (17:49)
[2024-09-29 06:36] LABS: African American GFR (CKD) >90 (>60 ml/min/1.73 sqM); Albumin 2.6 g/dL (3.5-5.0); Anion Gap 4 mmol/L; Blood Urea Nitrogen 9 mg/dL (7-17); Calcium 8.7 mg/dL (8.4-10.2); Carbon Dioxide 26 mmol/L (22-30); Chloride 103 mmol/L (98-107); Globulin 2.6 g/dL; Glucose 92 mg/dL (74-99); Non-African American GFR(CKD) >90 (>60 ml/min/1.73 sqM); Potassium 3.9 mmol/L (3.5-5.1); Sodium 133 mmol/L (137-145); Total Protein 5.2 g/dL (6.3-8.2)
[2024-09-29 06:37] LABS: ALT 105 U/L (4-34); AST 217 U/L (14-36); Alkaline Phosphatase 423 U/L (38-126); Total Bilirubin 2.2 mg/dL (0.2-1.3)
[2024-09-29 07:02] VITALS: BP 108/65; PULSE 80; RESP 18; TEMP 98.1
[2024-09-29 08:17] LABS: HCT 26.8 % (34.0-46.0); MCH 31.1 pg (25.0-35.0); MCV 100.2 fL (80.0-100.0); Macrocytosis Slight; Mean Platelet Volume 9.3; RBC 2.68 m/uL (3.80-5.40); RDW 14.8 % (11.5-15.5); WBC 6.8 k/uL (3.8-10.6)
[2024-09-29 08:58] LABS: Platelet Count 79 k/uL (150-450)
[2024-09-29 09:41] LABS: HCT 30.3 % (34.0-46.0); HGB 9.3 gm/dL (11.4-16.0); MCH 30.6 pg (25.0-35.0); MCHC 30.8 g/dL (31.0-37.0); MCV 99.2 fL (80.0-100.0); Macrocytosis Slight; Mean Platelet Volume 8.9; RBC 3.05 m/uL (3.80-5.40); RDW 14.7 % (11.5-15.5); WBC 7.7 k/uL (3.8-10.6)
[2024-09-29 09:45] LABS: Platelet Count 86 k/uL (150-450)
--- NOTE | 2024-09-29 14:18 | P.DS ---
Providers Date of admission: 09/26/24 20:48 Expected date of discharge: 09/29/24 Attending physician: Umang Jimenes MD Consults: 09/26/24 20:48 Consult Physician Routine Consulting Provider: Mely Valdovinos Consult Reason/Comments: Mass Do you want consulting provider notified?: Yes Consult Physician Routine Consulting Provider: Claude Rosales Consult Reason/Comments: [place] Do you want consulting provider notified?: Yes Primary care physician: [facility] Course: 74 year old F with PMH of HLD, OA, cataracts, lung mass diagnosed on 09/18. She presented to the emergency department on 09/26/2024 with a chief complaint of shortness of breath and right upper quadrant pain. Upon arrival to our facility, patient underwent evaluation. Vital signs upon arrival show BP 121 /78, HR 85, RR 20, T 97.4 F, and SpO2 of 96% on RA. Chest x-ray completed showing left upper lobe opacity. GB US showed diffuse metastatic disease throughout the liver and cholelithiasis. CBC showing platelet count of 109. Coagulation profile normal findings. BMP showing sodium 135 and glucose of 110. Magnesium 2.1. Liver profile showing total bili of 3.6, AST of 284, ALT of 131, and alkaline phosphatase of 606. Troponin was negative at less than 0.012. Lipase was elevated at 326. CT abdomen and pelvis with contrast and CTA chest was completed showing no evidence of pulmonary emboli showing left upper lobe consolidation compatible with likely airspace disease possibly secondary to obstruction from left perihilar mass infiltrating in the mediastinum and surrounding the left main bronchus with diffuse metastatic disease throughout the liver with reported greater than 50 lesions, nonobstructive left renal calculus measuring up to 9 mm. She was admitted under services with consult ation to fuel cell test engineer and oncologist. She underwent liver biopsy with IR on 09/27. 09/28 Patient was seen and examined. She reports RUQ pain 7-8/10 severity. No new labs done today. MRI brain shows no enhancing lesions. 09/29 Patient was seen and examined. Started on MS Contin yesterday by Oncology, pain improved to 2/10. CBC RBC 3.05, Hg 9.3, Hct 30.3, Plt 86. Discharge Plan: Discussed with Martha Hayward MANAGER PEST at bedside, she will send a script for MS Contin. Cleared by Oncology for discharge. Follow up with PCP on 09/[address] Xiong on 10/06 for results of the biopsy and for further workup an d treatment of your malignancy. General: non toxic, no distress, appears at stated age Derm: warm, dry Head: atraumatic, normocephalic, symmetric Mouth: no lip lesion, mucus membranes moist Cardiovascular: Normal S1 S2. Lungs: Clear to auscultation bilaterally, no accessory muscle use Abd: Soft. Non distended. No bruising. Non tender to palpation. Ext: no gross muscle atrophy, no edema, no contractures Neuro: no focal neuro deficits Psych: Alert and oriented Based on my assessment of this patient, this patient meets a high complexity level of care. 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 Patient Condition at Discharge: Stable Plan - Discharge Summary Discharge Rx Participant: No New Discharge Prescriptions: New polyethylene glycoL 3350 [Miralax] 17 gm PO DAILY packet Morphine Sulfate Ir [MSIR] 15 mg PO Q6HR PRN tab PRN Reason: Pain Continue Amitriptyline HCl [Elavil] 10 mg PO DIRECTED Benzonatate [Tessalon Perle] 200 mg PO TID PRN PRN Reason: Cough Discontinued Atorvastatin [Lipitor] 40 mg PO HS Naproxen [Naprosyn] 500 mg PO DIRECTED PRN PRN Reason: Pain Ketorolac [Toradol] 10 mg PO Q8HR PRN PRN Reason: Pain Acetaminophen Tab [Tylenol Tab] 1,000 mg PO BID Discharge Medication List Amitriptyline HCl [Elavil] 10 mg PO DIRECTED 09/26/24 [History] Benzonatate [Tessalon Perle] 200 mg PO TID PRN 09/26/24 [History] Morphine Sulfate Ir [MSIR] 15 mg PO Q6HR PRN tab 09/29/24 [Rx] polyethylene glycoL 3350 [Miralax] 17 gm PO DAILY packet 09/29/24 [Rx] Follow up Appointment(s)/Referral(s): Gypsy Xiong MD [STAFF PHYSICIAN] - 10/06/24 3:45 pm David Michaels DO [Primary Care Provider] - 09/30/24 9:40 am Patient Instructions/Handouts: Pain Management (DC), Narcotic Safety (DC), Weakness (DC) Activity/Diet/Wound Care/Special Instructions: Follow up with Dr. Xiong for results of the biopsy and for further workup and treatment of your malignancy. Discharge Disposition: HOME SELF-CARE
--- NOTE | 2024-09-29 14:56 | P.PN ---
Subjective Progress Note Date: 09/29/24 Principal diagnosis: lung mass, liver lesions When seen today patient is feeling that pain control is adequate, she has no new c/o, no fevers, N,V, appetite is decent. She is able to be ambulatory with controlled pain Objective - Vital Signs Vital signs: Vital Signs Temp 98.1 F 09/29/24 06:38 Pulse 80 09/29/24 06:38 Resp 18 09/29/24 06:38 BP 108/65 09/29/24 06:38 Pulse Ox 95 09/29/24 06:38 FiO2 Intake & Output 09/28/24 09/29/24 09/29/24 18:59 06:59 18:59 Intake Total 5459 376 0034 Balance 7561 563 6604 Weight 77.111 kg Intake: Oral 3069 610 6596 Other: Voiding Method Toilet Toilet # Voids 5 2 5 # Bowel Movements 1 0 1 - Constitutional General appearance: Present: average body habitus, cooperative, no acute distress - EENT Eyes: Present: anicteric sclerae, EOMI ENT: Present: hearing grossly normal - Respiratory Details: resp unlabored - Cardiovascular Details: regular, 2+ radial pulse - Peripheral edema leg Peripheral Edema: bilateral: None - Gastrointestinal Gastrointestinal Comment(s): no worsening tenderness General gastrointestinal: Present: distended, soft - Neurologic Neurologic: Present: CNII-XII intact - Musculoskeletal Musculoskeletal: Present: strength equal bilaterally - Psychiatric Psychiatric: Present: A&O x's 3, appropriate affect, intact judgment & insight - Labs CBC & Chem 7: 09/29/24 09:11 09/29/24 05:46 Labs: Abnormal Lab Results - Last 24 Hours (Table) 09/29/24 09/29/24 09/29/24 Range/Units 05:46 05:46 05:46 RBC 2.68 L (3.80-5.40) m/uL Hgb 8.3 L D (11.4-16.0) gm/dL Hct 26.8 L (34.0-46.0) % MCV 100.2 H (80.0-100.0) fL MCHC (31.0-37.0) g/dL Plt Count 79 L (150-450) k/uL Sodium 133 L (137-145) mmol/L Total Bilirubin 2.2 H (0.2-1.3) mg/dL AST 217 H (14-36) U/L ALT 105 H (4-34) U/L Alkaline Phosphatase 423 H (38-126) U/L Total Protein 5.2 L (6.3-8.2) g/dL Albumin 2.6 L (3.5-5.0) g/dL Lipase 535 H (23-300) U/L 09/29/24 Range/Units 09:11 RBC 3.05 L (3.80-5.40) m/uL Hgb 9.3 L (11.4-16.0) gm/dL Hct 30.3 L (34.0-46.0) % MCV (80.0-100.0) fL MCHC 30.8 L (31.0-37.0) g/dL Plt Count 86 L (150-450) k/uL Sodium (137-145) mmol/L Total Bilirubin (0.2-1.3) mg/dL AST (14-36) U/L ALT (4-34) U/L Alkaline Phosphatase (38-126) U/L Total Protein (6.3-8.2) g/dL Albumin (3.5-5.0) g/dL Lipase (23-300) U/L Assessment and Plan (1) Lung mass Status: Acute Priority: High Code(s): R91.8 - OTHER NONSPECIFIC ABNORMAL FINDING OF LUNG FIELD SNOMED Code(s): 137161395 (2) Abnormal CT scan Status: Acute Priority: High Code(s): R93.89 - ABNORMAL FINDINGS ON DX IMAGING OF OTH BODY STRUCTURES SNOMED Code(s): 843220723 Plan: Abnormal CT scan, lung mass, innumerable liver lesions -Liver Bx done 09/27, pt tolerated procedure well, path pending. No new or worsening pain in the back/RUQ -F/U appt for next week schedule to review pathology, prognosis, collect specimen for liquid biopsy, treatment options/recommendations. Specimen blocks will be requested and sent off for additional molecular testing -Pt reporting good pain control on MSIR. She feels she can go home and function. Rx for the same sent to pharm. Insurance would only allow a 7 day Rx. Reinforced prevention of narcotic induced constipation. Miralax daily-per pt preference -Discussed case with IM and Nursing. Pt ok for DC from Hem/Onc standpoint -Agree with going ahead with PET scan ordered by PCP. This was reviewed with pt and . Will confirm appt date and time and communicate with pt
[2024-09-29 15:04] LABS: HGB 8.3 gm/dL (11.4-16.0)
--- NOTE | 2024-10-03 09:56 | CDI ---
Documentation Clarification Form Date: 10/03/2024 08:54:16 AM From: Linda Brewer RN, CCDS Phone: [phone] Admit Date: 09/26/2024 08:48:00 PM Patient Name: Casie Slade Visit Number: [id number] Discharge Date: 09/29/2024 02:13:00 PM ATTENTION: The Clinical Documentation Specialists (CDI) and [facility] Coding Staff appreciate your assistance in clarifying documentation. Please respond to the clarification below the line at the bottom and electronically sign. The CDI & [facility] Coding staff will review the response and follow-up if needed. Please note: Queries are made part of the Legal Health Record. If you have any questions, please contact the author of this message via ITS. Provider: Emily DAVILA Acute hypoxemic respiratory failure is documented in the progress note on 09/28/24 which may lack sufficient clinical evidence/support in the medical record. Additional clarification is requested. History/Risk Factors: Hyperlipidemia, Former smoker Clinical Indicators: 74-year-old female presented at this ED or complaint of shortness of breath and right upper pain. She states she feels short of breath at rest and with exerting herself. 09/28 pulmonary assessment: She is maintaining good O2 saturation in the high 90s on 2 L/min per nasal cannula. Lungs: Equal air entry with no crackles, wheeze, rhonchi or dullness. No conversational dyspnea or accessory muscle use. CTA showing left upper lobe perihilar mass measuring 6.8 x 6.7 x 3.4 cm surrounding left mainstem bronchus. Left upper lobe opacity consistent with postobstructive atelectasis/infiltrate. Again, numerous liver lesions concerning for metastatic disease. 09/28 (12:35) VS 110/68 72 16 98.2 98% 2/L NC Treatment: Monitor O2 Sat 's (Titrate) Liver biopsy 09/27/24 MSIR 15 MG PO Q6 PRN Please clarify if acute hypoxemic respiratory failure is a valid diagnosis? [ x] No, Acute hypoxemic respiratory failure, is ruled out [ ] Yes, Acute hypoxemic respiratory failure is present as evidence by (additional clinical support): The patient had O2 saturations at 92% and was placed on 2 liters of oxygen on 09/27/24 by nursong staff [ ] Other (please specify diagnosis) [ ] Unable to determine (Template Last Revised: December 2023) MTDD
== END 2024-09-29 14:13 | disposition home or self-care (01) | DRG 181 ==
LOC: EC 13:11 → 5NMEDONC 20:48
PROVIDERS: ADMIT Internal Medicine; ATTEND Internal Medicine
PROC: 0FB03ZX Excision of Liver, Percutaneous Approach, Diagnostic (ICD-10-PCS; principal; 2024-09-27)
DX: C34.12 Malignant neoplasm of upper lobe, left bronchus or lung (principal); C77.1 Secondary and unspecified malignant neoplasm of intrathoracic lymph nodes; C78.7 Secondary malignant neoplasm of liver and intrahepatic bile duct; D69.59 Other secondary thrombocytopenia; K76.0 Fatty (change of) liver, not elsewhere classified; J98.11 Atelectasis; E78.5 Hyperlipidemia, unspecified; F41.9 Anxiety disorder, unspecified; G89.29 Other chronic pain; K80.20 Calculus of gallbladder without cholecystitis without obstruction; Z79.899 Other long term (current) drug therapy; Z85.828 Personal history of other malignant neoplasm of skin; R04.0 Epistaxis; Z96.642 Presence of left artificial hip joint; N20.0 Calculus of kidney; M19.90 Unspecified osteoarthritis, unspecified site; Z98.49 Cataract extraction status, unspecified eye; Z88.5 Allergy status to narcotic agent; Z87.891 Personal history of nicotine dependence
CPT/HCPCS: 36415; 47000; 70553; 71046; 71275; 74177; 76705; 76942; 80053; 83690; 83735; 84100; 84484; 85025; 85027; 85610; 85730; 88307; 88341; 88342; 93005; 96361; 96374; 96375; 99285

== ENCOUNTER 2024-10-23 16:34 | Inpatient (IN) | payer MEDICARE ==
[2024-10-23 16:41] VITALS: TEMP 97.5
--- NOTE | 2024-10-23 16:44 | ED ---
General Adult HPI - General Chief complaint: Altered Mental Status Stated complaint: Altered Mental Status, JONNATHAN Time Seen by Provider: 10/23/24 16:42 Source: EMS Mode of arrival: EMS Limitations: no limitations - History of Present Illness Initial comments: Casie is a 74yo F with PMH of lung CA with mets to the liver diagnosed last month. Brought to the ER today in extremis. Family reports that the patient had chemotherapy last week and has been fatigued and feeling unwell since then. Daughter reports patient's been sleeping up to 22 hours some days. They note that yesterday she seemed to get up to use the restroom frequently but did not complain of any symptoms. Today in the patient try to get herself out of bed was too weak slid down to the floor, was not strong enough to get her off the floor and decision was made to call ambula nce. When the ambulance arrived patient was altered, pale very weak and in moderate respiratory distress. - Related Data Home Medications Medication Instructions Recorded Confirmed Amitriptyline HCl [Elavil] 10 mg PO DIRECTED 09/26/24 10/23/24 Benzonatate [Tessalon Perle] 200 mg PO TID PRN 09/26/24 10/23/24 HYDROcodone/APAP 10-325MG [Topaz 1 tab PO Q4HR PRN 10/23/24 10/23/24 10-325] Ondansetron Odt [Zofran Odt] 8 mg PO Q8HR PRN 10/23/24 10/23/24 Allergies Allergy/AdvReac Type Severity Reaction Status Date / Time codeine Allergy Rash/Hives Verified 10/23/24 17:07 Review of Systems ROS Statement: Those systems with pertinent positive or pertinent negative responses have been documented in the HPI. ROS Other: All systems not noted in ROS Statement are negative. Past Medical History Past Medical History: Cancer Additional Past Medical History / Comment(s): lung CA and Liver History of Any Multi-Drug Resistant Organisms: None Reported Past Surgical History: Joint Replacement Additional Past Surgical History / Comment(s): cataract bilateral eyes. left hip replacement. Past Psychological History: No Psychological Hx Reported Smoking Status: Former smoker Past Alcohol Use History: Rare Past Drug Use History: None Reported General Exam Limitations: no limitations General appearance: obtunded Head exam: Present: atraumatic Eye exam: Present: other (Tylenol pallor, icterus) ENT exam: Present: mucous membranes dry Respiratory exam: Present: respiratory distress Cardiovascular Exam: Present: tachycardia, irregular rhythm GI/Abdominal exam: Present: mass (Scaphoid, liver is firm and nodular to palpation) Rectal exam: Present: bloody stool External exam: Present: normal external exam Neurological exam: Present: other (Patient opens her eyes to stimulation, can move her arms and follow commands) Skin exam: Present: pallor, other (Jaundice, old bruising noted over the extr emities) Course Vital Signs 10/23/24 10/23/24 10/23/24 16:35 16:58 17:07 Temperature 97.5 F L Pulse Rate 154 H 152 H 146 H Pulse Rate [ Cigar Wrapper Tender Automatic ] Respiratory 20 36 H 20 Rate Blood Pressure 150/98 130/105 79/62 O2 Sat by Pulse 90 L 100 94 L Oximetry Fraction of Inspired Oxygen (FIO2) 10/23/24 10/23/24 10/23/24 17:10 17:11 17:14 Temperature Pulse Rate 161 H Pulse Rate [ Cigar Wrapper Tender Automatic ] Respiratory 18 Rate Blood Pressure 99/46 O2 Sat by Pulse 99 Oximetry Fraction of 100 100 Inspired Oxygen (FIO2) 10/23/24 10/23/24 10/23/24 17:18 17:45 17:57 Temperature Pulse Rate 158 H 146 H 149 H Pulse Rate [ Cigar Wrapper Tender Automatic ] Respiratory 16 16 16 Rate Blood Pressure 121/75 118/82 114/65 O2 Sat by Pulse 98 99 99 Oximetry Fraction of Inspired Oxygen (FIO2) 10/23/24 10/23/24 10/23/24 17:59 18:12 18:30 Temperature Pulse Rate 146 H 158 H Pulse Rate [ Cigar Wrapper Tender Automatic ] Respiratory 16 16 Rate Blood Pressure 92/43 79/55 O2 Sat by Pulse 96 96 Oximetry Fraction of 60 Inspired Oxygen (FIO2) 10/23/24 10/23/24 10/23/24 18:43 19:00 19:26 Temperature Pulse Rate 150 H 151 H 134 H Pulse Rate [ Cigar Wrapper Tender Automatic ] Respiratory 16 18 18 Rate Blood Pressure 92/63 106/53 60/42 O2 Sat by Pulse 99 97 96 Oximetry Fraction of Inspired Oxygen (FIO2) 10/23/24 10/23/24 19:51 19:52 Temperature Pulse Rate 140 H Pulse Rate [ 152 H Cigar Wrapper Tender Automatic ] Respiratory 18 16 Rate Blood Pressure 85/42 O2 Sat by Pulse 96 Oximetry Fraction of Inspired Oxygen (FIO2) EKG Findings - EKG Comments: EKG Findings:: EKG interpreted by me EKG obtained due to tachycardia EKG obtained at 1644 rate is 156 rhythm is A-fib with RVR, no acute ST elevations or depressions no evidence of acute ischemia or infarction. This A-fib is new. Procedures - Sepsis Sepsis Focused Exam #1 Sepsis Focused Exam Date: 10/23/24 Sepsis Focused Exam Time: 20:00 Sepsis Focused Exam Complete: Yes Vital Signs & RN Notes Reviewed: Yes Capillary Refill: > 2 Seconds: Fingers, Toes Peripheral Pulses: Weak: Radial (R), Radial (L) Skin Color: Mottled, Jaundice, Pallor Cardiovascular Exam: tachycardia, irregular rhythm Medical Decision Making - Medical Decision Making Was pt. sent in by a medical professional or institution (, PA, [employer], urgent care, hospital, or long term...) When possible be specific @ -No Did you speak to anyone other than the patient for history (EMS, parent, family, police, friend...)? What history was obtained from this source @ -Family Did you review nursing and triage notes (agree or disagree)? Why? @ -I reviewed and agree with nursing and triage notes Were old charts reviewed (outside hosp., previous admission, EMS record, old EKG, old radiological studies, urgent care reports/EKG's, long term records)? Report findings @ -Previous hospitalization reviewed Differential Diagnosis (chest pain, altered mental status, abdominal pain women, abdominal pain men, vaginal bleeding, weakness, fever, dyspnea, syncope, headache, dizziness, GI bleed, back pain, seizure, CVA, palpatations, mental health)? @ -Differential Altered Mental Status: Hypoglycemia, DKA, hypercapnia, ETOH, overdose, CO poisoning, trauma, myxedema coma, HTN encephalopathy, infection, encephalitis, psychosis, intercranial hemorrhage, hepatic encephalopathy, meningitis, CVA, this is not meant to be an all-inclusive list EKG interpreted by me (3pts min.). @ -As above X-rays interpreted by me (1pt min.). @ -None done CT interpreted by me (1pt min.). @ -None done U/S interpreted by me (1pt. min.). @ -None done What testing was considered but not performed or refused? (CT, X-rays, U/S, labs)? Why? @ -None What meds were considered but not given or refused? Why? @ -Multiple medications including additional antibiotics, pressors, blood were considered but decision was made to pursue comfort measures Did you discuss the management of the patient with other professionals (professionals i.e. , PA, [employer], lab, RT, psych nurse, social media community manager, animal pathology teacher, teacher, correction officer reformatory, classification case manager)? Give summary @ -admitting physician and department administrator Was smoking cessation discussed for >3mins.? @ -No Was critical care preformed (if so, how long)? @ -Yes, 75 minutes Were there social determinants of health that impacted care today? How? (Homelessness, low income, unemployed, alcoholism, drug addiction, transportation, low edu. Level, literacy, decrease access to med. care, long-term, rehab)? @ -No Was there de-escalation of care discussed even if they declined (Discuss DNR or withdrawal of care, Hospice)? DNR status @ -Yes, What co-morbidities impacted this encounter? (DM, HTN, Smoking, COPD, CAD, Cancer, CVA, ARF, Chemo, Hep., AIDS, mental health diagnosis, sleep apnea, morbid obesity)? @ -None Was patient admitted / discharged? Hospital course, mention meds given and route, prescriptions, significant lab abnormalities, going to OR and other pertinent info. @ -Patient was seen and evaluated immediately upon arrival, there is noted that the patient was an extremis with severe respiratory distress, patient was quite pale and jaundiced appearing. Reviewed with the family patient is in distress family confirmed that at this time they do want to pursue all avenues of care and consent to intubation. Due to the patient's respiratory distress and altered mental status she is not a great candidate for BiPAP and decision was made to intubate. Patient was intubated without difficulty. IV access was obtained and labs were obtained. Hydration was ordered. Labs resulted with multiple critical abnormalities including neutropenia, acute on chronic anemia, thrombocytopenia with pancytopenia likely related to chemotherapy. In addition patient had a lactic acid of over 17, acute kidney injury, transaminitis. Broad-spectrum antibiotics were ordered for neutropenia, blood was ordered octreotide and Protonix were ordered. Patient's blood pressure was noted to be decreasing. After discussion with additional family and friends regarding the patient's current condition and prognosis patient was made to stop any aggressive care, continue comfort measures only. At this time family does not want blood transfusion, they will not consent to central line or pressors. They do not wish to extubate at this time though they do understand that the patient may tonight. Care was discussed with sound physician and department administrator who agreed with plan for admission at this time the patient will go to the ICU due to being on the ventilator however comfort measures will be pursued from here on out. Patient remained in A-fib with RVR rate did improve transiently to the low 100s ABG with pH 7.0 and Hgb 6.3, repeat CBC confirms Hgb 6.2 Again reiterated to family that patient is worsening and high risk for tonight Undiagnosed new problem with uncertain prognosis? @ -Yes Drug Therapy requiring intensive monitoring for toxicity (Heparin, Nitro, Insulin, Cardizem)? @ -No Were any procedures done? @ -No Diagnosis/symptom? @ -Multisystem organ failure, shock, GI bleed Acute, or Chronic, or Acute on Chronic? @ -Acute Uncomplicated (without systemic symptoms) or Complicated (systemic symptoms)? @ -Complicated Side effects of treatment? @ -No Exacerbation, Progression, or Severe Exacerbation? @ -No Poses a threat to life or bodily function? How? (Chest pain, [place], [place], pneumonia, PE, COPD, DKA, ARF, appy, cholecystitis, CVA, Diverticulitis, Homicidal, Suicidal, threat to staff... and all critical care pts) @ -Yes - Lab Data Result diagrams: 10/23/24 18:23 10/23/24 16:58 Lab Results 10/23/24 10/23/24 10/23/24 Range/Units 16:49 16:58 16:58 WBC 0.31 L* (4.50-10.00) 10*3/uL RBC 2.44 L (4.10-5.20) 10*6/uL Hgb 8.1 L (12.0-15.0) g/dL Hct 25.6 L (37.2-46.3) % MCV 104.9 H (80.0-97.0) fL MCH 33.2 H (27.0-32.0) pg MCHC 31.6 L (32.0-37.0) g/dL Plt Count 22 L (140-440) 10*3/uL MPV 10.2 (9.5-12.2) fL Immature Gran % (Auto) 6.5 % Neutrophils % Not Reportable Lymphocytes % Not Reportable Monocytes % Not Reportable Eosinophils % Not Reportable Basophils % Not Reportable Immature Gran # 0.02 (0.00-0.04) 10*3/uL Neutrophils # Not Reportable Lymphocytes # Not Reportable Monocytes # Not Reportable Eosinophils # Not Reportable Basophils # Not Reportable Differential Comment Manual Slide Review Performed Crenated Cell Present Fragmented RBCs Present PT 18.0 H (10.0-12.5) sec INR 1.8 H (<1.2) APTT 36.9 H (22.0-30.0) sec Sample Site ABG pH (7.35-7.45) ABG pCO2 (35-45) mmHg ABG pO2 (83-108) mmHg ABG HCO3 (21-25) mmol/L ABG Total CO2 (19-24) mmol/L ABG O2 Saturation (94-97) % ABG Base Excess mmol/L Dennis Test Hemoglobin (11.4-16.0) gm/dL FiO2 % Sodium (137-145) mmol/L Potassium (3.5-5.1) mmol/L Chloride (98-107) mmol/L Carbon Dioxide (22-30) mmol/L Anion Gap mmol/L BUN (7-17) mg/dL Creatinine (0.52-1.04) mg/dL Est GFR (CKD-EPI)AfAm (>60 ml/min/1.73 sqM) Est GFR (CKD-EPI)NonAf (>60 ml/min/1.73 sqM) Glucose (74-99) mg/dL POC Glucose (mg/dL) 87 (70-110) mg/dL POC Glu Radiation Physicist ID Raymon Gaxiola Lactic Ac Sepsis Rflx Plasma Lactic Acid Florin (0.7-2.0) mmol/L Calcium (8.4-10.2) mg/dL Total Bilirubin (0.2-1.3) mg/dL AST (14-36) U/L ALT (4-34) U/L Alkaline Phosphatase (38-126) U/L Ammonia (<30) umol/L Total Protein (6.3-8.2) g/dL Albumin (3.5-5.0) g/dL Urine Color Urine Appearance (Clear) Urine pH (5.0-8.0) Ur Specific [place] (1.001-1.035) Urine Protein (Negative) Urine Glucose (UA) (Negative) Urine Ketones (Negative) Urine Blood (Negative) Urine Nitrite (Negative) Urine Bilirubin (Negative) Urine Urobilinogen (<2.0) mg/dL Ur Leukocyte Esterase (Negative) Urine RBC (0-5) /hpf Urine WBC (0-5) /hpf Ur Squamous Epith Cells (0-4) /hpf Urine Bacteria (None) /hpf Hyaline Casts (0-2) /lpf Urine Mucus (None) /hpf Blood Type Blood Type Confirm Blood Type Recheck Bld Type Recheck Status Antibody Screen Crossmatch Transfuse Plasma Transfuse Platelets Spec Expiration Date 10/23/24 10/23/24 10/23/24 Range/Units 16:58 16:58 17:25 WBC (4.50-10.00) 10*3/uL RBC (4.10-5.20) 10*6/uL Hgb (12.0-15.0) g/dL Hct (37.2-46.3) % MCV (80.0-97.0) fL MCH (27.0-32.0) pg MCHC (32.0-37.0) g/dL Plt Count (140-440) 10*3/uL MPV (9.5-12.2) fL Immature Gran % (Auto) % Neutrophils % Lymphocytes % Monocytes % Eosinophils % Basophils % Immature Gran # (0.00-0.04) 10*3/uL Neutrophils # Lymphocytes # Monocytes # Eosinophils # Basophils # Differential Comment Manual Slide Review Crenated Cell Fragmented RBCs PT (10.0-12.5) sec INR (<1.2) APTT (22.0-30.0) sec Sample Site ABG pH (7.35-7.45) ABG pCO2 (35-45) mmHg ABG pO2 (83-108) mmHg ABG HCO3 (21-25) mmol/L ABG Total CO2 (19-24) mmol/L ABG O2 Saturation (94-97) % ABG Base Excess mmol/L Dennis Test Hemoglobin (11.4-16.0) gm/dL FiO2 % Sodium 140 (137-145) mmol/L Potassium 4.6 (3.5-5.1) mmol/L Chloride 103 (98-107) mmol/L Carbon Dioxide 9 L* (22-30) mmol/L Anion Gap 28 mmol/L BUN 39 H (7-17) mg/dL Creatinine 1.34 H (0.52-1.04) mg/dL Est GFR (CKD-EPI)AfAm 45 (>60 ml/min/1.73 sqM) Est GFR (CKD-EPI)NonAf 39 (>60 ml/min/1.73 sqM) Glucose 84 (74-99) mg/dL POC Glucose (mg/dL) (70-110) mg/dL POC Glu Radiation Physicist ID Lactic Ac Sepsis Rflx Plasma Lactic Acid Florin 17.8 H* (0.7-2.0) mmol/L Calcium 8.4 (8.4-10.2) mg/dL Total Bilirubin 6.4 H (0.2-1.3) mg/dL AST 429 H (14-36) U/L ALT 119 H (4-34) U/L Alkaline Phosphatase 402 H (38-126) U/L Ammonia <9 (<30) umol/L Total Protein 5.4 L (6.3-8.2) g/dL Albumin 2.7 L (3.5-5.0) g/dL Urine Color Yellow Urine Appearance Cloudy H (Clear) Urine pH 5.0 (5.0-8.0) Ur Specific [place] 1.014 (1.001-1.035) Urine Protein Trace H (Negative) Urine Glucose (UA) Negative (Negative) Urine Ketones Negative (Negative) Urine Blood Moderate H (Negative) Urine Nitrite Negative (Negative) Urine Bilirubin 1+ H (Negative) Urine Urobilinogen 2.0 (<2.0) mg/dL Ur Leukocyte Esterase Trace H (Negative) Urine RBC 15 H (0-5) /hpf Urine WBC 17 H (0-5) /hpf Ur Squamous Epith Cells 6 H (0-4) /hpf Urine Bacteria Many H (None) /hpf Hyaline Casts 5 H (0-2) /lpf Urine Mucus Rare H (None) /hpf Blood Type Blood Type Confirm Blood Type Recheck Bld Type Recheck Status Antibody Screen Crossmatch Transfuse Plasma Transfuse Platelets Spec Expiration Date 10/23/24 10/23/24 10/23/24 Range/Units 17:25 17:30 17:35 WBC (4.50-10.00) 10*3/uL RBC (4.10-5.20) 10*6/uL Hgb (12.0-15.0) g/dL Hct (37.2-46.3) % MCV (80.0-97.0) fL MCH (27.0-32.0) pg MCHC (32.0-37.0) g/dL Plt Count (140-440) 10*3/uL MPV (9.5-12.2) fL Immature Gran % (Auto) % Neutrophils % Lymphocytes % Monocytes % Eosinophils % Basophils % Immature Gran # (0.00-0.04) 10*3/uL Neutrophils # Lymphocytes # Monocytes # Eosinophils # Basophils # Differential Comment Manual Slide Review Crenated Cell Fragmented RBCs PT (10.0-12.5) sec INR (<1.2) APTT (22.0-30.0) sec Sample Site ABG pH (7.35-7.45) ABG pCO2 (35-45) mmHg ABG pO2 (83-108) mmHg ABG HCO3 (21-25) mmol/L ABG Total CO2 (19-24) mmol/L ABG O2 Saturation (94-97) % ABG Base Excess mmol/L Dennis Test Hemoglobin (11.4-16.0) gm/dL FiO2 % Sodium (137-145) mmol/L Potassium (3.5-5.1) mmol/L Chloride (98-107) mmol/L Carbon Dioxide (22-30) mmol/L Anion Gap mmol/L BUN (7-17) mg/dL Creatinine (0.52-1.04) mg/dL Est GFR (CKD-EPI)AfAm (>60 ml/min/1.73 sqM) Est GFR (CKD-EPI)NonAf (>60 ml/min/1.73 sqM) Glucose (74-99) mg/dL POC Glucose (mg/dL) (70-110) mg/dL POC Glu Radiation Physicist ID Lactic Ac Sepsis Rflx Y Plasma Lactic Acid Florin (0.7-2.0) mmol/L Calcium (8.4-10.2) mg/dL Total Bilirubin (0.2-1.3) mg/dL AST (14-36) U/L ALT (4-34) U/L Alkaline Phosphatase (38-126) U/L Ammonia (<30) umol/L Total Protein (6.3-8.2) g/dL Albumin (3.5-5.0) g/dL Urine Color Urine Appearance (Clear) Urine pH (5.0-8.0) Ur Specific [place] (1.001-1.035) Urine Protein (Negative) Urine Glucose (UA) (Negative) Urine Ketones (Negative) Urine Blood (Negative) Urine Nitrite (Negative) Urine Bilirubin (Negative) Urine Urobilinogen (<2.0) mg/dL Ur Leukocyte Esterase (Negative) Urine RBC (0-5) /hpf Urine WBC (0-5) /hpf Ur Squamous Epith Cells (0-4) /hpf Urine Bacteria (None) /hpf Hyaline Casts (0-2) /lpf Urine Mucus (None) /hpf Blood Type B Positive Blood Type Confirm B Positive Blood Type Recheck No Previous Record Bld Type Recheck Status CABO Indicated Antibody Screen NEGATIVE Crossmatch See Detail Transfuse Plasma Not Reportable Transfuse Platelets Not Reportable Spec Expiration Date 10/26/2024 - 233410/23/24 10/23/24 Range/Units 17:52 18:23 WBC 0.25 L* (4.50-10.00) 10*3/uL RBC 1.90 L (4.10-5.20) 10*6/uL Hgb 6.2 L* D (12.0-15.0) g/dL Hct 20.1 L (37.2-46.3) % MCV 105.8 H (80.0-97.0) fL MCH 32.6 H (27.0-32.0) pg MCHC 30.8 L (32.0-37.0) g/dL Plt Count 13 L* (140-440) 10*3/uL MPV 9.4 L (9.5-12.2) fL Immature Gran % (Auto) % Neutrophils % Lymphocytes % Monocytes % Eosinophils % Basophils % Immature Gran # (0.00-0.04) 10*3/uL Neutrophils # Lymphocytes # Monocytes # Eosinophils # Basophils # Differential Comment Manual Slide Review Crenated Cell Fragmented RBCs PT (10.0-12.5) sec INR (<1.2) APTT (22.0-30.0) sec Sample Site Right Brachial ABG pH 7.08 L* (7.35-7.45) ABG pCO2 41 (35-45) mmHg ABG pO2 312 H (83-108) mmHg ABG HCO3 12 L (21-25) mmol/L ABG Total CO2 14 L (19-24) mmol/L ABG O2 Saturation 99.8 H (94-97) % ABG Base Excess -16.4 mmol/L Dennis Test Yes Hemoglobin 6.3 L* (11.4-16.0) gm/dL FiO2 100 % Sodium (137-145) mmol/L Potassium (3.5-5.1) mmol/L Chloride (98-107) mmol/L Carbon Dioxide (22-30) mmol/L Anion Gap mmol/L BUN (7-17) mg/dL Creatinine (0.52-1.04) mg/dL Est GFR (CKD-EPI)AfAm (>60 ml/min/1.73 sqM) Est GFR (CKD-EPI)NonAf (>60 ml/min/1.73 sqM) Glucose (74-99) mg/dL POC Glucose (mg/dL) (70-110) mg/dL POC Glu Radiation Physicist ID Lactic Ac Sepsis Rflx Plasma Lactic Acid Florin (0.7-2.0) mmol/L Calcium (8.4-10.2) mg/dL Total Bilirubin (0.2-1.3) mg/dL AST (14-36) U/L ALT (4-34) U/L Alkaline Phosphatase (38-126) U/L Ammonia (<30) umol/L Total Protein (6.3-8.2) g/dL Albumin (3.5-5.0) g/dL Urine Color Urine Appearance (Clear) Urine pH (5.0-8.0) Ur Specific [place] (1.001-1.035) Urine Protein (Negative) Urine Glucose (UA) (Negative) Urine Ketones (Negative) Urine Blood (Negative) Urine Nitrite (Negative) Urine Bilirubin (Negative) Urine Urobilinogen (<2.0) mg/dL Ur Leukocyte Esterase (Negative) Urine RBC (0-5) /hpf Urine WBC (0-5) /hpf Ur Squamous Epith Cells (0-4) /hpf Urine Bacteria (None) /hpf Hyaline Casts (0-2) /lpf Urine Mucus (None) /hpf Blood Type Blood Type Confirm Blood Type Recheck Bld Type Recheck Status Antibody Screen Crossmatch Transfuse Plasma Transfuse Platelets Spec Expiration Date Critical Care Time Critical Care Time: Yes Total Critical Care Time: 75 Disposition Clinical Impression: Multiple organ failure, Metastatic cancer to liver, Lung mass, Shock, Pancytopenia Disposition: ADMITTED IP TO THIS HOSP Is patient prescribed a controlled substance at d/c from ED?: No
[2024-10-23 16:50] LABS: Glucose,Whole Blood 87 mg/dL (70-110)
[2024-10-23] MEDS: ETOMIDATE 2 MG/ML 10 ML VIAL IVP STA (17:02)
[2024-10-23] MEDS: ROCURONIUM 10 MG/ML (5 ML VIAL) IV STA (17:03)
[2024-10-23] MEDS: LACTATED RINGERS 1,000 ML IV SCH (17:11)
[2024-10-23 17:15] LABS: INR 1.8 (<1.2); Partial Thromboplastin Time 36.9 sec (22.0-30.0)
[2024-10-23 17:22] LABS: HCT 25.6 % (37.2-46.3); HGB 8.1 g/dL (12.0-15.0); MCH 33.2 pg (27.0-32.0); MCHC 31.6 g/dL (32.0-37.0); MCV 104.9 fL (80.0-97.0); RBC 2.44 10*6/uL (4.10-5.20); RDW 20.7 % (11.5-14.5)
[2024-10-23 17:25] LABS: Lactic Acid, Venous 17.8 mmol/L (0.7-2.0)
--- NOTE | 2024-10-23 17:34 | XR ---
EXAMINATION TYPE: XR chest 1V portable DATE OF EXAM: 10/23/2024 5:26 PM COMPARISON: Multiple prior chest radiograph, most recently dated 09/26/2024. CLINICAL INDICATION: Female, 74 years old with history of Fever; [facility] TECHNIQUE: XR chest 1V portable Frontal view of the chest. FINDINGS: Myocardial megaly. Pulmonary vascular congestive changes and small right pleural effusion. Patchy opacities in the left upper lung. Endotracheal tube terminates 3.5 cm above the adwoa. Enteric tube with distal sidehole and tip overl kitty the expected gastric lumen. No pneumothorax. No acute osseous abnormality. IMPRESSION: 1. Cardiomegaly and pulmonary vascular congestive changes with small right pleural effusion. 2. Support devices as above. [facility], , 10/23/2024 5:31 PM
[2024-10-23 17:36] LABS: Mean Platelet Volume 10.2 fL (9.5-12.2); WBC 0.31 10*3/uL (4.50-10.00)
[2024-10-23] MEDS: cefTRIAXone IN SWFI 1,000 MG/10 ML SYRINGE IVP STA (17:37)
[2024-10-23] MEDS: PANTOPRAZOLE 40 MG/10 ML VIAL IVP STA (17:37)
[2024-10-23 17:43] LABS: African American GFR (CKD) 45 (>60 ml/min/1.73 sqM); Albumin 2.7 g/dL (3.5-5.0); Alkaline Phosphatase 402 U/L (38-126); Anion Gap 28 mmol/L; Blood Urea Nitrogen 39 mg/dL (7-17); Calcium 8.4 mg/dL (8.4-10.2); Chloride 103 mmol/L (98-107); Glucose 84 mg/dL (74-99); Non-African American GFR(CKD) 39 (>60 ml/min/1.73 sqM); Potassium 4.6 mmol/L (3.5-5.1); Sodium 140 mmol/L (137-145); Total Bilirubin 6.4 mg/dL (0.2-1.3); Total Protein 5.4 g/dL (6.3-8.2)
[2024-10-23] MEDS: SODIUM CHLORIDE 0.9% 1,000 ML IV ONE (17:49)
[2024-10-23] MEDS: OCTREOTIDE 100 MCG/ML INJ IVP STA (17:50)
[2024-10-23 17:52] LABS: Carbon Dioxide 9 mmol/L (22-30)
[2024-10-23 17:55] LABS: ABG Base Excess -16.4 mmol/L; ABG HCO3 12 mmol/L (21-25); ABG Oxygen Saturation 99.8 % (94-97); ABG PCO2 41 mmHg (35-45); ABG PO2 312 mmHg (83-108); ABG TCO2 14 mmol/L (19-24); Allen Test Performed? Yes
[2024-10-23 17:58] LABS: ABG PH 7.08 (7.35-7.45)
[2024-10-23 18:02] LABS: Appearance,Urine Cloudy (Clear); Bacteria,Urine Many /hpf; Bilirubin,Urine 1+ (Negative); Blood,Urine Moderate (Negative); Color,Urine Yellow; Glucose,Urine (UA) Negative (Negative); Hyaline Casts,Urine 5 /lpf (0-2); Ketones,Urine Negative (Negative); Leukocyte Esterase,Urine Trace (Negative); Mucus,Urine Rare /hpf; Nitrite,Urine Negative (Negative); Protein,Urine Trace (Negative); RBC,Urine 15 /hpf (0-5); Specific Gravity,Urine 1.014 (1.001-1.035); Squamous Epithelial Cell,Urine 6 /hpf (0-4); WBC,Urine 17 /hpf (0-5)
[2024-10-23 18:10] LABS: ALT 119 U/L (4-34); AST 429 U/L (14-36)
[2024-10-23 18:25] LABS: Crenated RBC Present; RBC Fragments Present
[2024-10-23 18:26] LABS: Platelet Count 22 10*3/uL (140-440)
[2024-10-23] MEDS ORDERED: NALOXONE 0.4 MG/ML 1 ML VIAL IV PRN (18:39)
[2024-10-23] MEDS: PIPERACILLIN-TAZOBACTAM 3.375 GM in SODIUM CHLORIDE 0.9% 100 ML IVPB STA (18:59)
[2024-10-23 19:17] LABS: HCT 20.1 % (37.2-46.3); MCH 32.6 pg (27.0-32.0); MCHC 30.8 g/dL (32.0-37.0); MCV 105.8 fL (80.0-97.0); Mean Platelet Volume 9.4 fL (9.5-12.2); RDW 21.1 % (11.5-14.5)
[2024-10-23 19:24] LABS: HGB 6.2 g/dL (12.0-15.0); Platelet Count 13 10*3/uL (140-440); WBC 0.25 10*3/uL (4.50-10.00)
[2024-10-23 20:42] LABS: Glucose,Whole Blood 94 mg/dL (70-110)
[2024-10-23] MEDS ORDERED: MORPHINE SULFATE 2 MG/ML SYRINGE IVP PRN (21:19)
[2024-10-23 21:33] VITALS: BP 62/41; PULSE 123; RESP 12
[2024-10-23] MEDS: ATROPINE OPHTH SOLN 1% 5ML BTL SUBLINGUAL PRN (21:41)
[2024-10-23] MEDS: SCOPOLAMINE 1 MG/72 HR PATCH TRANSDERM SCH (21:41)
[2024-10-23] MEDS: MORPHINE SULFATE 4 MG/ML SYRINGE IVP PRN (21:59)
[2024-10-23] MEDS: MORPHINE SULFATE 100 MG in SODIUM CHLORIDE 0.9% 90 ML IV SCH (22:04)
--- NOTE | 2024-10-24 01:08 | P.HPIM ---
History of Present Illness H&P Date: 10/23/24 this will serve as an admission and discharge patient was before my evaluation 74 year old female with hyperlipidemia and recent diagnosis of metastatic lung cancer to the liver, she was at home today feeling increasingly weak after she started chemotherapy about a week ago , feeling fatigued and weak, and spending her day sleeping , today she accidentally slipped off the bed and family notified EMS , which found her altered with difficulty breathing. she was brought to the hospital and was intubated due to altered mental status , acidosis and hypoxemia . however, family opted for comfort measures and did not want to escalate her care. patient within couple hours of this decision blood work showed severe acute anemia Hgb 6.2 leukopenia WBC 0.25 LA 11.6 elevated elevated liver enzymes T bili 6.4,AST elevated 429 ALT elevated 119 , elevated alk phos 402 discharge diagnosis patient , comfort care measures acute metabolic encephalopathy , with severe metabolic acidosis metastatic lung cancer to the liver hyperlipidemia Past Medical History Past Medical History: Cancer Additional Past Medical History / Comment(s): lung CA and Liver History of Any Multi-Drug Resistant Organisms: None Reported Past Surgical History: Joint Replacement Additional Past Surgical History / Comment(s): cataract bilateral eyes. left hip replacement. Past Psychological History: No Psychological Hx Reported Smoking Status: Former smoker Past Alcohol Use History: Rare Past Drug Use History: None Reported Medications and Allergies Home Medications Medication Instructions Recorded Confirmed Type Amitriptyline HCl [Elavil] 10 mg PO DIRECTED 09/26/24 10/23/24 History Benzonatate [Tessalon Perle] 200 mg PO TID PRN 09/26/24 10/23/24 History HYDROcodone/APAP 10-325MG [[place] 1 tab PO Q4HR PRN 10/23/24 10/23/24 History 10-325] Ondansetron Odt [Zofran Odt] 8 mg PO Q8HR PRN 10/23/24 10/23/24 History Allergies Allergy/AdvReac Type Severity Reaction Status Date / Time codeine Allergy Rash/Hives Verified 10/23/24 17:07 Physical Exam Vitals: Vital Signs Temp Pulse Pulse Resp BP Pulse Ox FiO2 10/23/24 21:30 123 H 12 /10/23/24 21:20 135 H 17 10/23/24 21:10 125 H 18 70/33 10/23/24 19:52 152 H 16 10/23/24 19:51 140 H 18 85/42 96 10/23/24 19:26 134 H 18 60/42 96 10/23/24 19:00 151 H 18 106/53 97 10/23/24 18:43 150 H 16 92/63 99 10/23/24 18:30 158 H 16 79/55 96 10/23/24 18:12 146 H 16 92/43 96 10/23/24 17:59 60 10/23/24 17:57 149 H 16 114/65 99 10/23/24 17:45 146 H 16 118/82 99 10/23/24 17:18 158 H 16 121/75 98 10/23/24 17:14 100 10/23/24 17:11 100 10/23/24 17:10 161 H 18 99/46 99 10/23/24 17:07 146 H 20 79/62 94 L 10/23/24 16:58 152 H 36 H 130/105 100 10/23/24 16:35 97.5 F L 154 H 20 150/98 90 L Intake and Output 10/23/24 10/23/24 10/23/24 06:59 14:59 22:59 Intake Total 12.165 Balance 12.165 Intake: Intake, IV Titration 12.165 Amount propofoL 1,000 mg In 12.165 Empty Bag 1 bag @ 15 MCG/ KG/MIN 7.348 mls/hr IV . [id number] [facility] Rx#:[id number] Other: Weight 81.647 kg Results CBC & Chem 7: 10/23/24 18:23 10/23/24 16:58 Labs: Abnormal Lab Results - Last 24 Hours (Table) 10/23/24 10/23/24 10/23/24 Range/Units 16:58 16:58 16:58 WBC 0.31 L* (4.50-10.00) 10*3/uL RBC 2.44 L (4.10-5.20) 10*6/uL Hgb 8.1 L (12.0-15.0) g/dL Hct 25.6 L (37.2-46.3) % MCV 104.9 H (80.0-97.0) fL MCH 33.2 H (27.0-32.0) pg MCHC 31.6 L (32.0-37.0) g/dL Plt Count 22 L (140-440) 10*3/uL MPV (9.5-12.2) fL PT 18.0 H (10.0-12.5) sec INR 1.8 H (<1.2) APTT 36.9 H (22.0-30.0) sec ABG pH (7.35-7.45) ABG pO2 (83-108) mmHg ABG HCO3 (21-25) mmol/L ABG Total CO2 (19-24) mmol/L ABG O2 Saturation (94-97) % Hemoglobin (11.4-16.0) gm/dL Carbon Dioxide 9 L* (22-30) mmol/L BUN 39 H (7-17) mg/dL Creatinine 1.34 H (0.52-1.04) mg/dL Plasma Lactic Acid Florin (0.7-2.0) mmol/L Total Bilirubin 6.4 H (0.2-1.3) mg/dL AST 429 H (14-36) U/L ALT 119 H (4-34) U/L Alkaline Phosphatase 402 H (38-126) U/L Total Protein 5.4 L (6.3-8.2) g/dL Albumin 2.7 L (3.5-5.0) g/dL Urine Appearance (Clear) Urine Protein (Negative) Urine Blood (Negative) Urine Bilirubin (Negative) Ur Leukocyte Esterase (Negative) Urine RBC (0-5) /hpf Urine WBC (0-5) /hpf Ur Squamous Epith Cells (0-4) /hpf Urine Bacteria (None) /hpf Hyaline Casts (0-2) /lpf Urine Mucus (None) /hpf Crossmatch 10/23/24 10/23/24 10/23/24 Range/Units 16:58 17:25 17:35 WBC (4.50-10.00) 10*3/uL RBC (4.10-5.20) 10*6/uL Hgb (12.0-15.0) g/dL Hct (37.2-46.3) % MCV (80.0-97.0) fL MCH (27.0-32.0) pg MCHC (32.0-37.0) g/dL Plt Count (140-440) 10*3/uL MPV (9.5-12.2) fL PT (10.0-12.5) sec INR (<1.2) APTT (22.0-30.0) sec ABG pH (7.35-7.45) ABG pO2 (83-108) mmHg ABG HCO3 (21-25) mmol/L ABG Total CO2 (19-24) mmol/L ABG O2 Saturation (94-97) % Hemoglobin (11.4-16.0) gm/dL Carbon Dioxide (22-30) mmol/L BUN (7-17) mg/dL Creatinine (0.52-1.04) mg/dL Plasma Lactic Acid Florin 17.8 H* (0.7-2.0) mmol/L Total Bilirubin (0.2-1.3) mg/dL AST (14-36) U/L ALT (4-34) U/L Alkaline Phosphatase (38-126) U/L Total Protein (6.3-8.2) g/dL Albumin (3.5-5.0) g/dL Urine Appearance Cloudy H (Clear) Urine Protein Trace H (Negative) Urine Blood Moderate H (Negative) Urine Bilirubin 1+ H (Negative) Ur Leukocyte Esterase Trace H (Negative) Urine RBC 15 H (0-5) /hpf Urine WBC 17 H (0-5) /hpf Ur Squamous Epith Cells 6 H (0-4) /hpf Urine Bacteria Many H (None) /hpf Hyaline Casts 5 H (0-2) /lpf Urine Mucus Rare H (None) /hpf Crossmatch See Detail 10/23/24 10/23/24 10/23/24 Range/Units 17:52 18:23 20:17 WBC 0.25 L* (4.50-10.00) 10*3/uL RBC 1.90 L (4.10-5.20) 10*6/uL Hgb 6.2 L* D (12.0-15.0) g/dL Hct 20.1 L (37.2-46.3) % MCV 105.8 H (80.0-97.0) fL MCH 32.6 H (27.0-32.0) pg MCHC 30.8 L (32.0-37.0) g/dL Plt Count 13 L* (140-440) 10*3/uL MPV 9.4 L (9.5-12.2) fL PT (10.0-12.5) sec INR (<1.2) APTT (22.0-30.0) sec ABG pH 7.08 L* (7.35-7.45) ABG pO2 312 H (83-108) mmHg ABG HCO3 12 L (21-25) mmol/L ABG Total CO2 14 L (19-24) mmol/L ABG O2 Saturation 99.8 H (94-97) % Hemoglobin 6.3 L* (11.4-16.0) gm/dL Carbon Dioxide (22-30) mmol/L BUN (7-17) mg/dL Creatinine (0.52-1.04) mg/dL Plasma Lactic Acid Florin 11.6 H* (0.7-2.0) mmol/L Total Bilirubin (0.2-1.3) mg/dL AST (14-36) U/L ALT (4-34) U/L Alkaline Phosphatase (38-126) U/L Total Protein (6.3-8.2) g/dL Albumin (3.5-5.0) g/dL Urine Appearance (Clear) Urine Protein (Negative) Urine Blood (Negative) Urine Bilirubin (Negative) Ur Leukocyte Esterase (Negative) Urine RBC (0-5) /hpf Urine WBC (0-5) /hpf Ur Squamous Epith Cells (0-4) /hpf Urine Bacteria (None) /hpf Hyaline Casts (0-2) /lpf Urine Mucus (None) /hpf Crossmatch
--- NOTE | 2024-10-27 10:59 | CDI ---
Documentation Clarification Form Date: 10/27/2024 From: Nancy Francisco Admit Date: 10/23/2024 06:39:00 PM Patient Name: Casie Slade Visit Number: [id number] Discharge Date: 10/23/2024 11:57:00 PM ATTENTION: The Clinical Documentation Specialists (CDI) and [facility] Coding Staff appreciate your assistance in clarifying documentation. Please respond to the clarification below the line at the bottom and electronically sign. The CDI & [facility] Coding staff will review the response and follow-up if needed. Please note: Queries are made part of the Legal Health Record. If you have any questions, please contact the author of this message via ITS. Dr. Umang Jimenes Acute Respiratory distress is documented in the ED note 10/23/24 and hypoxia is documented in your History and Physical 10/23/24. Additional clarification regarding the etiology of respiratory distress is requested. History/Risk Factors: patient is a 74-year-old female with a history of hyperlipidemia, and metastatic lung cancer to the liver. Clinical Indicators: patient started chemotherapy about a week ago, and was feeling increasingly weak and fatigued. She was found to be altered with difficulty breathing. She was brought to the hospital and required intubation. Shortly after admission, patient was changed to comfort care and shortly after that. ABG/CBG: pH 7.08 pCO2 41 pHCO3 12 Lactate 17.8 Vital Signs: T 97.5, Pulse 154, RR 36, BP 150/98 02 90 L on non rebreather 15L Treatment: intubated and mechanical ventilation Please clarify the etiology of respiratory distress, if known: [ ] Acute Respiratory Distress [ ] Acute Hypoxic Respiratory Failure [ ] Acute on Chronic Hypoxic Respiratory Failure [ ] Other, please specify [ ] Unable to determine [ ] Acute Respiratory Distress MTDD
--- NOTE | 2024-10-27 11:15 | CDI ---
Documentation Clarification Form Date: 10/27/2024 From: Nancy Francisco Admit Date: 10/23/2024 06:39:00 PM Patient Name: Casie Slade Visit Number: [id number] Discharge Date: 10/23/2024 11:57:00 PM ATTENTION: The Clinical Documentation Specialists (CDI) and [facility] Coding Staff appreciate your assistance in clarifying documentation. Please respond to the clarification below the line at the bottom and electronically sign. The CDI & [facility] Coding staff will review the response and follow-up if needed. Please note: Queries are made part of the Legal Health Record. If you have any questions, please contact the author of this message via ITS. Dr. Umang Jimenes Sepsis and shock are documented in the ED note 10/23/24. Additional clarification regarding these two diagnoses is requested. History/Risk Factors: patient is a 74-year-old female with a history of hyperlipidemia, and metastatic lung cancer to the liver. Clinical Indicators: patient started chemotherapy about a week ago, and was feeling increasingly weak and fatigued. She was found to be altered with difficulty breathing. She was brought to the hospital and required intubation. Shortly after admission, patient was changed to comfort care and shortly after that. Lactate 17.8, carbon dioxide 9, BUN 39, Creatinine 1.34, AST 429, ALT 119 Alk Phosp 402 WBC: .25, RBC 1.90, HGB 6.2, HCT 20.1 Platelet count 13 Vital Signs: T 97.5, Pulse 154, RR 36, BP 150/98 02 90 L on non rebreather 15L Treatment: intubated and mechanical ventilation, comfort measures Please clarify the etiology of shock, if known: [ ] Septic Shock [ ] Hypovolemic Shock [ ] Other, please specify [ ] Unable to determine ] Unable to determine MTDD
--- NOTE | 2024-10-27 11:21 | CDI ---
Documentation Clarification Form Date: 10/27/24 From: Nancy Francisco Admit Date: 10/23/2024 06:39:00 PM Patient Name: Casie Slade Visit Number: [id number] Discharge Date: 10/23/2024 11:57:00 PM ATTENTION: The Clinical Documentation Specialists (CDI) and [facility] Coding Staff appreciate your assistance in clarifying documentation. Please respond to the clarification below the line at the bottom and electronically sign. The CDI & [facility] Coding staff will review the response and follow-up if needed. Please note: Queries are made part of the Legal Health Record. If you have any questions, please contact the author of this message via ITS. Doctor/Provider: Umang Jimenes Acute on chronic anemia is documented in the ED note and H&P. Additional specificity regarding the type of anemia is requested. History/Risk Factors: patient is a 74-year-old female with a history of hyperlipidemia, and metastatic lung cancer to the liver. Clinical indicators: patient started chemotherapy about a week ago, and was feeling increasingly weak and fatigued. She was found to be altered with difficulty breathing. She was brought to the hospital and required intubation. Shortly after admission, patient was changed to comfort care and shortly after that Hemoglobin: 6.2 Hematocrit: 20.1 Treatment: family elected to place patient on comfort measures Please clarify the type of anemia: [ ] Acute blood loss anemia [ ] Acute on chronic blood loss anemia [ ] Drug induced anemia due to chemotherapy [ ] Anemia due to malignancy [ ] Unable to determine [ ] Other, please specify [ ] Unable to determine MTDD
--- NOTE | 2024-11-02 11:05 | CDI ---
Documentation Clarification Form Date: 11/02/2024 10:24:40 AM From: Celina Hector RN, CCDS Email: [email or web address] Admit Date: 10/23/2024 06:39:00 PM Patient Name: Casie Slade Visit Number: [id number] Discharge Date: 10/23/2024 11:57:00 PM ATTENTION: The Clinical Documentation Specialists (CDI) and [facility] Coding Staff appreciate your assistance in clarifying documentation. Please respond to the clarification below the line at the bottom and electronically sign. The CDI & [facility] Coding staff will review the response and follow-up if needed. Please note: Queries are made part of the Legal Health Record. If you have any questions, please contact the author of this message via ITS. Doctor Sandra Rincon Multiorgan organ failure is documented in the 10/23 ED note. History/Risk Factors: Lung Ca with mets to the liver, s/p chemotherapy. Presented with EMS altered, pale, weak and in respiratory distress. Clinical Indicators: 10/23 ED: "Sepsis. Skin Color: Mottled, Jaundice, Pallor. Due to the patient's respiratory distress and altered mental status she is not a great candidate for BiPAP and decision was made to intubate. Patient's blood pressure was noted to be decreasing. Multisystem organ failure, shock, GI bleed. Multiple organ failure, Metastatic cancer to liver, Lung mass, Shock, Pancytopenia." 10/23 Labs: WBC 0.31; Hgb 6.2; PT 18.0; INR 1.8; PTT 36.9; HCO3 9; Cr 1.34; lactic acid 17.8; T. bili 6.4; AST 429; ALT 119; ALP 402; +UA; UCX E. coli; blood culture E. coli 10/23 blood gas: pH 7.08 pCO2 41 pO2 312 HCO3 12 10/23 VS: HR 123-161; RR 36; BP 79/62 Treatment: intubation/mechanical ventilation; 1L 0.9 NS IV bolus x1 on 10/23; IV Zosyn 3.375gm x1 on 10/23; IV Protonix 80mg x1 on 10/23; 2L LR bolus on 10/23; IV Rocephin 1000mg x1 on 10/23; IV Octreotide acetate 50mcg x1 on 10/23 In your professional opinion, can you please further specify the organ failure monitored/treated during this admission. (More than one diagnosis may apply) [ X ] Acute liver failure [ X] Acute respiratory failure X Hypoxic Hypercapnic [ X ] Acute renal failure 2nd to acute tubular necrosis 2nd to other etiology (please clarify) [ X ] Encephalopathy Metabolic Anoxic Other (please specify) [ X ] Coagulopathy [ ] Other, please specify [ ] Unable to determine All of these forms of organ failure were acknowledged but decision was made to withhold treatment and allow MTDD
== END 2024-10-23 23:57 | disposition expired | DRG 871 ==
LOC: EC 16:34 → 2SICU 18:39
PROVIDERS: ADMIT Student in an Organized Health Care Education/Training Program; ATTEND Student in an Organized Health Care Education/Training Program
PROC: 5A1935Z Respiratory Ventilation, Less than 24 Consecutive Hours (ICD-10-PCS; principal; 2024-10-23)
PROC: 0BH17EZ Insertion of Endotracheal Airway into Trachea, Via Natural or Artificial Opening (ICD-10-PCS; principal; 2024-10-23)
DX: A41.9 Sepsis, unspecified organism (principal); D61.810 Antineoplastic chemotherapy induced pancytopenia; G93.41 Metabolic encephalopathy; K72.00 Acute and subacute hepatic failure without coma; J96.01 Acute respiratory failure with hypoxia; R57.9 Shock, unspecified; C78.7 Secondary malignant neoplasm of liver and intrahepatic bile duct; C34.92 Malignant neoplasm of unspecified part of left bronchus or lung; D64.9 Anemia, unspecified; E87.20 Acidosis, unspecified; N17.9 Acute kidney failure, unspecified; D68.9 Coagulation defect, unspecified; I48.91 Unspecified atrial fibrillation; E83.39 Other disorders of phosphorus metabolism; Z51.5 Encounter for palliative care; R74.01 Elevation of levels of liver transaminase levels; T45.1X5A Adverse effect of antineoplastic and immunosuppressive drugs, initial encounter; E78.5 Hyperlipidemia, unspecified; W06.XXXA Fall from bed, initial encounter; Z66 Do not resuscitate; Z96.642 Presence of left artificial hip joint; Z87.891 Personal history of nicotine dependence; Z88.5 Allergy status to narcotic agent; Z79.899 Other long term (current) drug therapy
CPT/HCPCS: 31500; 36415; 36600; 71045; 80053; 81001; 82140; 82805; 83605; 85025; 85027; 85610; 85730; 86850; 86900; 86901; 86920; 87040; 87077; 87086; 87186; 93005; 94002; 96361; 96365; 96375; 99291